=== PATIENT | female | born 1955 | race Caucasian/White ===

== ENCOUNTER 2024-09-11 05:41 | Inpatient (IN) | payer MEDICARE, BC, SELFPAY ==
[2024-09-11] VITALS (21 sets, daily range): BP systolic 120–185; BP diastolic 10–111; PULSE 54–87; RESP 15–18; TEMP 35.8–36.9; O2SAT 94–100; BMI 24.7
--- OUTSIDE RECORDS SUMMARY | 2024-09-11 05:43 | XMS_ITS | Data Portability ---
Author Organization [place] [facility], [facility] - [facility] Address [address] [facility] [address] [facility] [address] [place] [address] Assessment Encounter Date Assessment Date Assessment LastModified by Organization Details LastModified Time 06/04/2024 06/04/2024 ASSESSMENT: Patient is a good candidate for conservative care and the prognosis is for a favorable outcome that achieves the patients' goals. We discussed etiology, activity modifications, home care, and other treatment options. Initially, it is recommended that the patient receive in-office treatment 1 times per week for 8 weeks at which time a re-evaluation will be performed to determine an appropriate change in plan. Initially, treatment will focus on joint manipulation to restore range of motion and reduce pain. We will slowly progress to therapeutic exercises and activities to improve function, strength, and stability may also be used as warranted. If the patient is not responding as expected, more invasive procedures will be discussed along with a referral. All considerations above were discussed with the patient and questions answered to satisfaction. If the patient should have any additional questions, or should the condition evolve or worsen, the patient should not hesitate to contact our office. ecram Not available 06/04/2024 15:33:47 08/20/2024 08/20/2024 ASSESSMENT: Patient is a good candidate for conservative care and the prognosis is for a favorable outcome that achieves the patients' goals. We discussed etiology, activity modifications, home care, and other treatment options. Initially, it is recommended that the patient receive in-office treatment 1 times per week for 8 weeks at which time a re-evaluation will be performed to determine an appropriate change in plan. Initially, treatment will focus on joint manipulation to restore range of motion and reduce pain. We will slowly progress to therapeutic exercises and activities to improve function, strength, and stability may also be used as warranted. If the patient is not responding as expected, more invasive procedures will be discussed along with a referral. All considerations above were discussed with the patient and questions answered to satisfaction. If the patient should have any additional questions, or should the condition evolve or worsen, the patient should not hesitate to contact our office. ecram Not available 08/20/2024 12:40:11 Plan of Treatment Reminders Order Date Submit Date Provider Last Modified By Organization Details Last Modified Time Details Appointments None record ed. Lab None record ed. Referral None record ed. Procedures None record ed. Surgeries None record ed. Imaging None record ed. Medication Orders None record ed. Patient TargetsNo targets recorded. Patient InstructionsNo instructions recorded. Reason for Referral None Reported. Problems Name Problem SNOMED Code Status Onset Date Resolution Date Notes Provider Name and Address Organization Details Recorded Time Thoracic segmental dysfunction 672784733 Active 2024 Darshan Jernigan DC [address] [facility], [place], [address], [facility] 15:33:48 Low back pain 060261306 Active 2024 Darshan Jernigan DC [address] [facility], [place], [address], [facility] 15:33:48 Lumbar segmental dysfunction 841792666 Active 2024 Darshan Jernigan DC [address] [facility], [place], [address], [facility] 15:33:48 Somatic dysfunction of sacral spine 971249329 Active 2024 Darshan Jernigan DC [address] [place] [address], [place], [address], [facility] 15:33:48 Problem Notes None recorded. Procedures Surgical History Date Name Laterality Status Provider Name and Address Organization Details Recorded Time 5 02258: Spinal manipulation , 3 to 4 regions completed Darshan Jernigan DC [address] [facility], [place], [address], [facility] 08/20/2024 12:40:11 5 47923: Spinal manipulation , 3 to 4 regions completed Darshan Jernigan DC [address] [facility], [place], [address], [facility] 06/04/2024 15:34:28 Imaging Results None recorded. Procedure Notes None recorded. Medical Equipment None Reported. Medications Name Sig Start Date Stop Date Status Note LastModified by Organization Details LastModified Time losartan 50 mg tablet TAKE 1.5 TABLETS (75 MG) BY MOUTH ONCE DAILY. active Not Available Not Available No t Available trazodone 50 mg tablet TAKE ONE TABLET BY MOUTH BEFORE BED FOR INSOMNIA active Not Available Not Available No t Available losartan 25 mg tablet TAKE 1 TABLET (25 MG) BY MOUTH ONCE DAILY. active Not Available Not Available No t Available metoprolol succinate ER 25 mg tablet,extend ed release 24 hr TAKE 1 TABLET (25 MG) BY MOUTH ONCE DAILY. active Not Available Not Available No t Available escitalopram 5 mg tablet TAKE 1 TABLET (5 MG) BY MOUTH ONCE DAILY IN THE MORNING. active Not Available Not Available No t Available GaviLyte-G 236 gram-22.74 gram-6.74 gram-5.86 gram oral solution DRINK 2 LITERS THE DAY BEFORE THE PROCEDURE AND 2 LITERS 6 HOURS PRIOR TO PROCEDURE. DO NOT START BEFORE MARCH 05, 2024. active Not Available Not Available No t Available Vitals None Recorded Social History None recorded. Functional Status None recorded. Mental Status None recorded. Family History Nothing Reported. Medical History No medical history recorded. Gynecological HistoryNo gynecological history recorded. Obstetrics History GPAL:G 0 P 0 0 0 0 Past Encounters Encounter ID Performer Location Encounter Start Date Encounter Closed Date Diagnosis/Indication Diagnosis SNOMED-CT Code Diagnosis ICD10 Code Diagnosis Note [id number] Darshan Jernigan DC [facility] [address] [place] [address] 06/04/2024 15:23:25 06/04/2024 15:39:18 Lumbar segmental dysfunction 350742876 M99.03 Low back pain 125524488 M54.50 Somatic dy sfunction of sacral spine 201938721 M99.04 Thoracic s egmental dysfunction 822434879 M99.02 [id number] Darshan Jernigan DC [facility] [address] [facility] [place] [address] 08/20/2024 12:22:44 08/20/2024 12:42:47 Lumbar segmental dysfunction 112020055 M99.03 Low back pain 098001289 M54.50 Somatic dy sfunction of sacral spine 987995429 M99.04 Thoracic s egmental dysfunction 625177893 M99.02 Health Concerns Section Related Observation LastModified by Organization Detai ls LastModified Time None Recorded Concern Status LastModified by Organization Details LastModified Time None Recorded Advance Directives Directive None Recorded Payers Encounter Date Sequence Insurance Name Policy Number Policy Fuentes Covered Member ID Fuentes Member ID Guarantor Name 06/04/2024 1 [place] [id number] Lakisha Hurtado [id number] Nona Hurtado 06/04/2024 2 [place] [email or web address] [place] [facility] Lakisha Hurtado [id number] Nona Hurtado 08/20/2024 1 [place]) [id number] Lakisha Hurtado [id number] Nona Hurtado Notes Date Note Type Note Provider Name and Address Organization Details Recorded Time 06/04/2024 text/html HPI - Lumbar SpineReported bypatient.Location: bilateral; With radiation to knee Quality:aching Severity:mild Timing:gradual Context:lifting; twisting Aggravating Factors:carrying; twisting; bending/squatting Alleviating Factors:rest Darshan Jernigan DC [address] [facility], [place], [address], [facility] 06/04/2024 15:34:43 08/20/2024 text/html HPI - Lumbar SpineReported bypatient.Location: bilateral; With radiation to knee Quality:aching Severity:mild Timing:gradual Context:lifting; twisting Aggravating Factors:carrying; twisting; bending/squatting Alleviating Factors:rest Darshan Jernigan DC [address] [facility], [place], [address], [facility] 08/20/2024 12:40:59 OBGyn Episode No OBEpisode recorded.
--- OUTSIDE RECORDS SUMMARY | 2024-09-11 05:43 | XMS_ITS | Continuity of Care Document ---
Author Organization [place] - [facility] Address [address] [facility] [address] [address] [place] [address] Assessment Encounter Date Assessment Date Assessment LastModified by Organization Details LastModified Time 08/20/2024 08/20/2024 ASSESSMENT: Patient is a good [...] Organization Details Recorded Time Thoracic segmental dysfunction 398569663 Active 2024 Darshan Jernigan DC [address] [facility], [place], [address], [facility] 5 15:33:48 Low back pain 775348286 Active 2024 Darshan Jernigan DC [address] [facility], [place], [address], [facility] 5 15:33:48 Lumbar segmental dysfunction 488705893 Active 2024 Darshan Jernigan DC [address] [facility], [place], [address], [facility] 5 15:33:48 Somatic dysfunction of sacral spine 874394607 Active 2024 Darshan Jernigan DC [address] [facility], [place], [address], [facility] 5 15:33:48 Problem Notes None recorded. Procedures Surgical History Date Name Laterality Status Provider Name and Address Organization Details Recorded Time 5 08175: Spinal manipulation , 3 to 4 regions completed Darshan Jernigan DC [address] [facility], [place], [address], [facility] 08/20/2024 12:40:11 5 36635: Spinal manipulation , 3 to 4 regions completed Darshan Jernigan DC [address] [facility], [place], [address], [facility] 06/04/2024 15:34:28 Imaging Results None recorded. Procedure [...] SNOMED-CT Code Diagnosis ICD10 Code Diagnosis Note [id number] [facility] [address] [place] [address] [place] [address] 08/20/2024 12:22:44 08/20/2024 12:42:47 Lumbar segmental dysfunction 649218237 M99.03 Low back pain 557851269 M54.50 Somatic dy sfunction of sacral spine 161902819 M99.04 Thoracic s egmental dysfunction 865448255 M99.02 Health Concerns Section Related Observation LastModified by Organization Detai ls LastModified Time None Recorded Concern Status LastModified by Organization Details LastModified Time None Recorded Payers Encounter Date Sequence Insurance Name Policy Number Policy Fuentes Covered Member ID Fuentes Member ID Guarantor Name 08/20/2024 1 [place] [id number] Lakisha Hurtado [id number] Nona Hurtado Notes Date Note Type Note Provider Name and Address Organization Details Recorded Time 08/20/2024 text/html HPI - Lumbar SpineReported bypatient.Location: bilateral; With radiation to knee Quality:aching Severity:mild Timing:gradual Context:lifting; twisting Aggravating Factors:carrying; twisting; bending/squatting Alleviating Factors:rest Darshan Jernigan DC [address] [facility], [address], [facility] - [facility] 08/20/2024 12:40:59 OBGyn Episode No OBEpisode recorded.
--- OUTSIDE RECORDS SUMMARY | 2024-09-11 05:43 | XMS_ITS | Clinical Summary ---
Author Organization [employer] [facility] [employer] [facility] Address [address] [place] [id number] Care Team Providers Care Breaker Machine Operator Name Role Phone Tess Murphy DO Primary Care Provider [phone] Allergies No known active allergies Medications multivitamin (MVI) tablet Take 1 tablet by mouth once daily. 0 6 Active calcium carbonate-vitam in D3, 600 mg-125 unit, (CALCIUM 600 + D) tablet Take 1 tablet by mouth 2 times daily with meals. 0 6 Active melatonin 3 mg tablet Take 1 tablet by mouth at bedtime. unsure of dose 0 7 Active Omeprazole 20 mg tabletIndicatio ns:Gastric reflux Take 1 tablet by mouth once daily. 90 tablet 3 0 Active escitalopram oxalate (LEXAPRO) 5 mg tabletIndicatio ns:Anxiety Take 1 Tablet (5 mg) by mouth once daily in the morning. 90 Tablet 3 4 Active miscellaneous medical supply (Blood Pressure Cuff) miscIndications :HTN (hypertension) As directed. Home automatic BP cuff 1 Each 4 Active metoprolol succinate (Toprol XL) 25 mg Sustained-Relea se tabletIndicatio ns:HTN (hypertension) Take 1 Tablet (25 mg) by mouth once daily. 90 Tablet 4 4 Active losartan 50 mg tabletIndicatio ns:HTN (hypertension) Take 1.5 Tablets (75 mg) by mouth once daily. 135 Tablet 3 5 Active polyethylene glycol-electrol yte (GOLYTELY) 236-22.74-6.74 -5.86 gram suspensionIndic ations:Encounte r for screening colonoscopy Drink 2 liters the day before the procedure and 2 liters 6 hours prior to procedure. Do not start before March 05, 2024. 4000 mL 4 09/03/19 25 Discontinu ed(*Med complete/R egimen complete/L evel of care change) losartan 50 mg tabletIndicatio ns:HTN (hypertension) Take 1.5 Tablets (75 mg) by mouth once daily. 135 Tablet 5 09/03/19 25 Discontinu ed(Reorder (E-cancel not sent)) Active Problems Problem Noted Date Diagnosed Date Aortic valve regurgitation 03/24/2024 Overview (03/24/2024): Echocardiogram 03/16/24, mild to moderate Ascending aorta dilatation 03/24/2024 Overview (03/24/2024): Echocardiogram 03/16/24 ascending aorta 4.5cm, aortic sinus 4.1cm. Osteopenia 07/05/2014 Overview (07/05/2014): -1.5- -1.6 in hips.. Recommend exercise and recheck 4-5 years. Ramandeep Yen M.D. 07/05/2014 5:30 PM Stress fracture of fibula 06/21/2014 Benign neoplasm of colon 08/29/2008 Overview (06/27/2024): Colonoscopy 08/2008 polyp repeat in 5 years Colonoscopy 10/2013 polyp repeat in 5 years Colonoscopy 06/2024 1 cm-TA, repeat in 3 years Menopause syndrome 07/29/2008 Overview (08/25/2009): Much improved Insomnia, unspecified 07/10/2007 Resolved Problems Problem Noted Date Diagnosed Date Resolved Date senior living (current) use of anticoagulants 03/13/2012 04/10/2012 Closed fracture of metatarsal bone(s) 08/03/2011 09/17/2013 Articular cartilage disorder, right knee 05/24/2011 09/11/2012 Right ankle pain 05/24/2011 09/17/2013 Hip bursitis 05/24/2011 09/17/2013 Elevated BP 06/11/2010 08/31/2010 Encounters Date Type Department Care Team Description 09/04/2024 Orders Only [facility] [address] [place] [address] Tess Murphy DO <No scans attached> 09/02/2024 10:25 AM CDT Office [facility] [address] [facility] [address] Tess Murphy DO Blood Pressure; Knee Pain/problem (Bump on left knee 1 month) 09/02/2024 Travel 08/10/2024 12:15 PM CDT Office Visit [facility] [address] [facility] [address] [place] [address] Olesya Posada MD Derm Problem 08/10/2024 Travel 06/23/2024 6:49 AM NEWSPAPER DELIVERY DRIVER - 06/23/2024 11:59 PM NEWSPAPER DELIVERY DRIVER Hospital Encounter Al Leal MD 06/23/2024 Lab Requisition [facility] [phone] Al Leal MD 06/23/2024 Orders Only [facility] [address] [facility] [place] [address] Al Leal MD 1 scan: (1-Ord) [facility] 06/23/2024 Orders Only [facility] [address] [facility] [address] [place] [address] Al Leal MD <No scans attached> 06/23/2024 Surgery [facility] [address] [facility] [address] [place] [address] Al Leal MD Colonoscopy 06/21/2024 11:00 AM NEWSPAPER DELIVERY DRIVER Orders Only [facility] [address] [place] [address] Lab 06/21/2024 Travel 06/15/2024 Telephone [facility] [address] [place] [address] Al Leal MD [facility] [place] [facility]/23/24) from Last 3 Months Immunizations Immunization Administration Dates Next Due AMB Influenza, IIV4 PF (=>6 mos Flulaval,Fluzone Fluarix)(Flu Clinic Only) 03/13/2020 COVID-19 VACCINE SPIKEVAX (M ODERNA 50MCG/0.5ML) 12YO+ PFS 03/26/2023 DTaP 07/29/2008 Influenza, IIV3 (Age >=3 years) 03/21/2010 Influenza, Inactivated AIIV4 (Age 65+ Years) Preserv Free 03/26/2023 Pneumococcal Conj 20-valent (Prevnar 20) 023 Td (Age >=7 Years) 01/05/1999 Tdap 02/27/2024,09/17/2013 Zoster (Shingrix-RZV, recombinant) 04/04/2020, Zoster (Zostavax-ZVL, live) 05/24/2013 Family History Medical History Relation Name Comments Other Brother at 17 from MVA Heart Disease Father Heart Disease Mother Cancer-breast No Family History Cancer-colon No Family History not in par ent or sibling Diabetes No Family History Relation Name Status Comments Brother Father (Age 72) of [place] Mother (Age 74) dementia, of chf Social History Tobacco Use Types Packs/Day Years Used Date Smoking Tobacco: Former Cigarettes 0.3 30 0 01/17/1979 - 01/17/2009 Smokeless Tobacco: Never Tobacco Cessation:Counseling Given: Not Answered Comments:quit 2008 Alcohol Use Standard Drinks/Week Comments Yes 3 (1 standard drink = 0.6 oz pur e alcohol) PHQ-2 Answer Date Recorded PHQ-2 TOTAL SCORE 0 04/29/2024 Social Connections Answer Date Recorded Do you often feel lonely or isolated from those around you? 0 02/24/2024 Alcohol Use Answer Date Recorded How often do you have a drink containing alcohol ? 3 02/13/2023 How many drinks containing a lcohol do you have on a typical day when you are drinking? 0 02/13/2023 How often do you have five or more drinks on one occasion? 0 02/13/2023 Financial Resource Strain Answer Date R ecorded Difficulty of Paying Living Expenses 3 02/24/2024 Difficulty of Paying Living Expenses Not on file 02/24/2024 Food Insecurity Answer Date Recorded Do you worry your food will run out before you are able to buy more? 1 02/24/2024 Transportation Needs Answer Date Record ed Does lack of transportation keep you from medica l appointments? 1 02/24/2024 Does lack of transportation keep you from work, meetings or getting things that you need? 1 02/24/2024 Housing Stability Answer Date Recorded What is your housing situation today? 1 02/24/2024 Utilities Answer Date Recorded Do you have trouble paying f or utilities (for example, heat, electricity, water, phone)? 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 Not on file Not on file Not on file Obstetrics History Para Term AB IAB SAB Ectopic Multiple Livin g Live Births 3 3 3 0 0 0 0 0 0 3 3 Date Outcome GA Total Labor Labor/2nd/3rd Weight Sex Type Anes PTL Darya A1 A5 Name Clin Term Vag Living Term Vag Living Term Vag Living Last Filed Vital Signs Vital Sign Reading Time Taken Comments Blood Pressure 118/78 09/02/2024 10:47 AM CDT Pulse 76 09/02/2024 10:27 AM CDT Temperature 36.9 C (98.4 F) 06/01/2024 11:15 AM NEWSPAPER DELIVERY DRIVER Respiratory Rate - - Oxygen Saturation 100% 09/02/2024 10:27 AM CDT Inhaled Oxygen Concentration - - Weight 70.3 kg (155 lb) 09/02/2024 10:27 AM CDT Height 165.1 cm (5' 5) 06/01/2024 11:15 AM NEWSPAPER DELIVERY DRIVER Body Mass Index 25.79 06/01/2024 11:15 AM NEWSPAPER DELIVERY DRIVER Plan of Treatment Upcoming Encounters Date Type Department Care Team (Late st Contact Info) Description 10/14/2024 11:45 AM CDT Orders Only [facility] [address] [place] [address] Lab, [facility] Maintenance Due Date Last Done Comments RSV vaccine for adults or (1 - Risk 60-74 years 1-dose series) 2017 COVID-19 vaccine series ( season) 2024 03/26/2023, 04/12/2022, 03/20/2021, Additional history exists Mammogram for age 45-75 11/17/2024 11/18/19, 11/14/2022, 11/12/2021, Additional history exists Influenza Vaccine (Season Ended) 2025 03/26/2023, 03/13/2020, 03/21/2010 Medicare Wellness for age 65+ 02/24/2025 02/24/2024, 02/13/2023 Depression screening for age 12+ 04/30/2025 04/30/2024, 04/29/2024, 02/24/2024, Additional history exists BMI (ht and wt on same day) for age 18+ 06/01/2025 06/01/2024, 04/26/2024, 02/24/2024, Additional history exists Colonoscopy through age 75 06/23/202706/23, 03/11/2019, 03/11/2019, Additional history exists Lipids for age 45-75 02/23/2029 02/24/2024, 02/13/2023, 02/12/2022, Additional history exists Tetanus booster 02/26/2034 02/27/2024, 06/2013, 01/05/1999 Hepatitis C screening for ag e 18-79 Completed 09/17/2013 Zoster (shingles) series for age 50+ Completed 04/04/2020, 02/01/2020, 05/24/2013 Pneumococcal series for age 50+ Completed 3 Tdap Completed 02/27/2024, 09/17/2013 DEXA/DXA scan for age 65+ Completed 2023, 01/12/2020, 06/28/2014 Procedures Procedure Name Priority Date/Time Associated Diagnosis Comments CREATININE Routine 09/02/2024 10:52 AM CDT HTN (hypertension) POTASSIUM Routine 09/02/2024 10:52 AM CDT HTN (hypertension) PATH TISSUE EXAM Routine 08/10/2024 1:33 PM CDT Neoplasm of uncertain behavior PATH TISSUE EXAM Routine 06/23/2024 8:17 AM NEWSPAPER DELIVERY DRIVER LAB TRACKING EVENT Routine 06/23/2024 8: 15 AM NEWSPAPER DELIVERY DRIVER COLONOSCOPY SCREENING Routine 06/23/2024 12:00 AM NEWSPAPER DELIVERY DRIVER Benign neoplasm of colon, unspecified part of colon HEPATIC FUNCTION PANEL Routine 06/21/2024 10:52 AM NEWSPAPER DELIVERY DRIVER Elevated AST (SGOT) CREATININE Routine 06/21/2024 10:52 AM NEWSPAPER DELIVERY DRIVER HTN (hypertension) POTASSIUM Routine 06/21/2024 10:52 AM NEWSPAPER DELIVERY DRIVER Pre-op exam XR DXA BONE DENSITY 2 SITES AXIAL Routine 03/02/2024 1:20 PM CDT Menopause Osteopenia, unspecified location LIPID PANEL W REFLEX MEASURED LDL Routine 02/24/2024 10:23 AM CDT Lipid screening XR MAMMO USHA BILAT SCREEN Routine 11/18/2023 9:16 AM CDT Visit for screening mammogram ANTI HCV Routine 09/17/2013 9:41 AM CDT Need for hepatitis C screening test SURGICAL PROCEDURE (TYPE PROCEDURE DESCRIPTION BELOW) Encounter for screening colonoscopy from Last 3 Months or Most Recently Relevant to Health Maintenance Results * POTASSIUM (09/02/2024 10:52 AM CDT) Only the most recent of2 resultswithin the time period is included. POTASSIUM 3.9 3.5 - 5.3 mmol/L [facility] Blood BLOOD SPECIMEN / Unknown 09/02/2024 10:52 AM CDT 09/02/2024 10:54 AM CDT Narrative [facility] - 09/03/2024 5:59 AM CDT FASTING:YES FASTING: YES [facility] [employer] CHEMISTRY Final Resu lt Performing Organization Address [facility]/ZIP Co de Phone Number [facility] [address] [place] [address], [facility] [address] [place] [address] * (ABNORMAL) CREATININE (09/02/2024 10:52 AM CDT) Only the most recent of2 resultswithin the time period is included. CREATININE 1.06(H) 0.50 - 1.05 mg/dL [facility] EGFR 58(L) > OR = 60 mL/min/1.73 m2 [facility] Blood BLOOD SPECIMEN / Unknown 09/02/2024 10:52 AM CDT 09/02/2024 10:54 AM CDT Narrative [facility] - 09/03/2024 5:59 AM CDT FASTING:YES FASTING: YES [facility] [email or web address] CHEMISTRY Final Resu Performing Organization Address City/[facility] Co de Phone Number [facility] [facility] [address] [place] [phone], [facility] [address] [place] [phone] * PATH TISSUE EXAM (08/10/2024 1:33 PM CDT) Only the most recent of2 resultswithin the time period is included. Case Report Pathology Report Case: [id number] Authorizing Provider: Olesya Posada MD Collected: 08/10/2024 1333 Ordering Location: [facility] Received: 08/10/2024 1334 [facility] Pathologist: Wilder Prado MD Specimen: Skin, right medial cheek 08/16/2024 5:54 PM CDT [facility] Final Diagnosis A) SKIN, RIGHT MEDIAL CHEEK, BIOPSY: 1. Excoriated folliculitis 2. No evidence of malignancy 08/16/2024 5:54 PM CDT [facility] EN[facility]OR[facility] at 1754 CDT Comment A) Multiple deeper levels are evaluated to exclude malignancy. 08/16/2024 5:54 PM CDT [facility] Clinical Information rule out basal cell carcinoma 08/16/2024 5:54 PM CDT [facility] Gross Description A) Received in formalin, labeled with the patient's name and R medial cheek, is a 0.9 x 0.6 cm skin biopsy. There is a 0.3 x 0.1 cm flat clay lesion. The specimen is inked yellow, trisected and entirely submitted in one cassette. [facility] 08/11/2024 08/16/2024 5:54 PM CDT [facility] ENTR[facility]ORATORY Microscopic Description The final diagnosis is based on microscopic examination of appropriate sections of all specimens. A) Sections of skin demonstrate focal excoriation of the epidermis with associated reactive squamous epithelial change and mixed acute and chronic inflammation. This appears to involve a cystically dilated, inflamed follicle. There is associated dermal fibrosis. Deeper level sections are evaluated. The presence of yellow ink is confirmed on tissue sections. 08/16/2024 5:54 PM CDT [facility] Additional Information Interpreted at [facility] - [address] [facility] [address] [address] 08/16/2024 5:54 PM CDT [facility] Other SPECIMEN FROM SKIN / Unknown Non-Blood / Unknown 08/10/2024 1:33 PM CDT 08/10/2024 1:34 PM CDT us Olesya Posada MD PATHOLOGY/CYTOLOGY Final Result [facility] [address] [place] [address], * LAB TRACKING EVENT (06/23/2024 8:15 AM NEWSPAPER DELIVERY DRIVER) Other (Other) Client Collect / Unknown 06/23/2024 8:15 AM NEWSPAPER DELIVERY DRIVER 06/23/2024 5:17 PM NEWSPAPER DELIVERY DRIVER Al Leal MD LAB BILL ONLY Final Res ult [facility] [address] [place] [address], * COLONOSCOPY SCREENING (06/23/2024 12:00 AM NEWSPAPER DELIVERY DRIVER) Al Leal MD GI PROCEDURE ORD Final Re sult * LIVER PANEL (HEPATIC FUNCTION PANEL) (06/21/2024 10:52 AM NEWSPAPER DELIVERY DRIVER) PROTEIN, TOTAL 7.3 6.1 - 8.1 g/dL [facility] ALBUMIN 4.4 3.6 - 5.1 g/dL [facility] GLOBULIN 2.9 1.9 - 3.7 g/dL (calc) [facility] ALBUMIN/GLOBULIN RATIO 1.5 1.0 - 2.5 (calc) [facility] BILIRUBIN, TOTAL 0.9 0.2 - 1.2 mg/dL [facility] BILIRUBIN, DIRECT 0.2 < OR = 0.2 mg/dL [facility] BILIRUBIN, INDIRECT 0.7 0.2 - 1.2 mg/dL (calc) [facility] ALKALINE PHOSPHATASE 39 37 - 153 U/L [facility] AST 28 10 - 35 U/L [facility] ALT 14 6 - 29 U/L [facility] Blood BLOOD SPECIMEN / Unknown 06/21/2024 10:52 AM NEWSPAPER DELIVERY DRIVER 06/21/2024 10:53 AM NEWSPAPER DELIVERY DRIVER Narrative [facility] - 06/22/2024 5:51 AM NEWSPAPER DELIVERY DRIVER FASTING:NO FASTING: NO Tess Murphy DO CHEMISTRY Final Resu lt [facility] [address] [place] [address], [facility] [address] [place] [address] * (ABNORMAL) XR DXA BONE DENSITY 2 SITES AXIAL (03/02/2024 1:20 PM CDT) Anatomical Region Laterality Modality Spine, HIPS, HIPL, HIPR Other Impressions 03/10/2024 4:14 PM CDT Osteopenia. RECOMMENDATIONS: The National Osteoporosis Foundation recommends pharmacologic treatment for patients with T-scores of -2.5 or less, patients with prior history of fragility fractures, or patients with 10-year probability of greater than 3% at hips or greater than 20% of suffering major osteoporotic fractures. Recommend continued optimization of calcium and vitamin D intake through dietary means and/or supplementation and regular exercise. Repeat scan recommended in 3-5 years. Oma Hernandez PA-C [facility] 03/10/2024 Narrative 03/10/2024 4:14 PM CDT For Patients: Results are automatically released to your [facility] [employer] [facility] ([email or web address]) account once available, in compliance with federal regulations. This means that you may see your results before your provider has had a chance to review them. Please allow 2-3 business days for your provider to comment on the results. XR DXA Bone Mineral Density (BMD) EXAM LOCATION: [address] [address] PATIENT NAME: Lakisha Hurtado DATE OF : 1955 EXAM DATE: 03/02/2024 REQUESTING PROVIDER: Tess Murphy DO GENDER AT : female HEIGHT: 5' 4.75 (02/24/2024) WEIGHT: 161 lb (02/24/2024) MENOPAUSAL STATUS: Postmenopausal RACE/ETHNICITY: White RISK FACTORS: Alcohol > 3 drinks/day (prior), Height Loss (2 inches or more), History of Fragility Fracture (at a major site), Smoking (prior), and White Race CURRENT MEDICATION FOR BONE LOSS: NONE INDICATION: Menopause COMPARISON DATE(S): 2019 DXA scans are compared to prior studies for a patient only when the two (or more) studies were performed on the same scanner. It is not possible to compare data generated on one scanner to data from another because there are not standards in DXA equipment. This applies even if the two scanners are made by the same rn circulating. PROCEDURE: Dual-energy x-ray absorptiometry performed with routine technique. Reporting is completed in the form of a T-score. The T-score represents the standard deviation from peak bone mass based on young healthy adult. A Z-score is used for diagnosis in premenopausal women, and for men under the age of 50. FINDINGS: RESULT LUMBAR SPINE L1 - L4 BMD: 1.090 g/cm2 T-Score: - 0.8 Z-Score: + 0.5 Change from prior in 2020: Increase 4.8%. RESULTS FEMUR Left femoral neck BMD: 0.872 g/cm2 T-Score: - 1.2 Z-Score: + 0.2 Change from prior in 2020: Increase 0.8%. Right femoral neck BMD: 0.875 g/cm2 T-Score: - 1.2 Z-Score: + 0.2 Change from prior in 2020: Decrease 1.2%. Left hip BMD: 0.767 g/cm2 T-Score: - 1.9 Z-Score: - 0.8 Change from prior in 2020: Decrease 2.3%. Right hip BMD: 0.791 g/cm2 T-Score: - 1.7 Z-Score: - 0.6 Change from prior in 2020: Increase 1.7%. WHO criteria: Normal: T-score at or above -1 SD Osteopenia: T-score between -1.1 and -2.4 SD Osteoporosis: T-score at or below -2.5 SD FRAX RISK CALCULATION (USED FOR OSTEOPENIA ONLY): 10-year probability of major osteoporotic fracture: 16.8%. 10-year probability of hip fracture: 2.0%. us Tess Murphy DO DEXA Final Resu lt * (ABNORMAL) LIPID PANEL W REFLEX MEASURED LDL (02/24/2024 10:23 AM CDT) [facility] CHOLESTEROL, TOTAL 298(H) <200 mg/dL [facility] HDL CHOLESTEROL 126 > OR = 50 mg/dL [facility] TRIGLYCERIDES 78 <150 mg/dL [facility] LDL-CHOLESTEROL 154(H) mg/dL (calc) [facility] Comment: Reference range: <100 Desirable range <100 mg/dL for primary prevention; <70 mg/dL for patients with CHD or diabetic patients with > or = 2 CHD risk factors. LDL-C is now calculated using the Arturo calculation, which is a validated novel method providing better accuracy than the Friedewald equation in the estimation of LDL-C. Al GA et al. INGA. 2013;310(19): 8610-7059 (http://education.[employer]/faq/PJW092) CHOL/HDLC RATIO 2.4 <5.0 (calc) [facility] NON HDL CHOLESTEROL 172(H) <130 mg/dL (calc) [facility] Comment: For patients with diabetes plus 1 major ASCVD risk factor, treating to a non-HDL-C goal of <100 mg/dL (LDL-C of <70 mg/dL) is considered a therapeutic option. Blood BLOOD SPECIMEN / Unknown 02/24/2024 10:23 AM CDT 02/24/2024 10:24 AM CDT us Tess Murphy DO CHEMISTRY Final Resu lt [facility] [address] [place] [address], [facility] [address] [place] [address] * XR MAMMO USHA BILAT SCREEN (11/18/2023 9:16 AM CDT) Anatomical Region Laterality Modality BREASTS, Breast Left, Breast Right Bilateral Mammography Impressions 11/18/2023 4:26 PM CDT There is no radiographic evidence for malignancy. Recommend annual mammograms. MAMMOGRAM ASSESSMENT: ACR 1 Negative PATIENTS: You will also receive a letter with your examination results in an easy to read format. If you have questions about your results, please contact your referring provider. Narrative 11/18/2023 4:26 PM CDT For Patients: As a result of the 21st Century Cures Act, medical imaging exams and procedure reports are released immediately into your electronic medical record. You may view this report before your referring provider. If you have questions, please contact your health care provider. XR MAMMO USHA BILAT SCREEN [[id number]] CLINICAL HISTORY: This is an asymptomatic 68 y.o. patient. INDICATION FOR EXAM: Mammogram Screening. TECHNIQUE: CC & MLO views were obtained. This study was evaluated with the assistance of Computer-Aided Detection. Breast Tomosynthesis was used in interpretation. COMPARISON FILM: Yes 11/14/22 [facility] 11/12/21 [facility] FINDINGS: There are scattered areas of fibroglandular density. There are no dominant masses, suspicious micro calcifications or areas of architectural distortion. Tess Murphy DO MAMMO Final Resu lt * ANTI HCV [[id number]] (09/17/2013 9:41 AM CDT) HEPATITIS C ANTIBODY Non-Reacti ve Non-Reacti ve 09/17/2013 4:04 PM CDT [facility] Blood specimen (specimen) BLOOD SPECIMEN / Unknown Venipuncture / Unknown 09/17/2013 9:41 AM CDT 09/17/2013 9:41 AM CDT Narrative [facility] - 09/17/2013 4:04 PM CDT Antibodies to HCV not detected; does not exclude the possibility of exposure to HCV. Ramandeep Yen SEND OUTS Final R esult [facility] [address] [place] [address], [place] from Last 3 Months or Most Recently Relevant to Health Maintenance Insurance [employer] [place] [place] [address] [employer] [address] MEDICARE PART B HB ONLY Care Teams Breaker Machine Operator Relationship Specialty Start Date End Date Tess Murphy DO [address] [place] [address] PCP - General Family Practice 08/22/15
--- NOTE | 2024-09-11 06:13 | CRLHL7_ITS ---
For Patients: As a result of the Century Cures Act, medical imaging exams and procedure reports are released immediately into your electronic medical record. You may view this report before your referring provider. If you have questions, please contact your health care provider. INDICATION: Abdominal pain COMPARISON: None TECHNIQUE: CT examination of the abdomen and pelvis was performed following the uneventful intravenous administration of 75 cc of Isovue 370. Thin section axial images were obtained from the lung bases through the pubic symphysis. Oral contrast was not administered. Please note that all CT scans at this facility use dose modulation, iterative reconstruction, and/or weight-based dosing when appropriate to reduce radiation dose to as low as reasonably achievable. FINDINGS: LUNG BASES: Basilar opacities probably due to atelectasis or scarring.Heart size top normal the lung bases. Large hiatal hernia admitting the fundus and a portion of the corpus of the stomach. LIVER/BILIARY SYSTEM:Steatosis. Low-density lesion likely a cyst. No biliary ductal dilation. Normal-appearing gallbladder. ADRENALS: Normal KIDNEYS, URETERS and BLADDER:The kidneys appear normal. No visible mass, calculus or hydronephrosis. The ureters and bladder as visualized appear normal. SPLEEN:Normal appearance. PANCREAS: Appears normal. RETROPERITONEUM and MESENTERY: No mass or adenopathy. Abnormal mesenteric vasculature as described below GASTROINTESTINAL SYSTEM: Significantly dilated abnormal appearing midabdominal small bowel with engorgement of the mesentery and twisting morphology identified best seen when scrolling through coronal images number 40 through 66. This probably represents a close loop obstruction associated with a volvulus or internal hernia. Some of the small bowel loops show poor perfusion suggesting ischemia. Surgical consultation is advised. No definite intramural air or free air. Mild free fluid. PELVIS: No mass, adenopathy or free fluid. OSSEOUS STRUCTURES and ABDOMINAL WALL: There is an age-appropriate appearance of the osseous structures.No significant abdominal wall defect. Discussed with Dr. Tan at 7:30 a.m. on September 11, 2024 IMPRESSION: 1. Abnormal midabdominal small bowel. This appears represent a closed loop obstruction possibly due to volvulus or internal hernia. Clearly visible twisting morphology of the vascular pedicle at the mesentery. Poorly enhancing small bowel loops suggesting ischemia. No intramural air, free air or collection. Mild free fluid. Surgical consultation advised. 2. Other nonacute appearing findings as above. Please note that all CT scans at this facility use dose modulation, iterative reconstruction, and/or weight-based dosing when appropriate to reduce radiation dose to as low as reasonably achievable. Dictated by Dustin Fitzgerald MD @ 09/11/2024 7:32:25 AM (Electronically Signed)
--- NOTE | 2024-09-11 06:17 | ED_ITS ---
HPI - General Adult General Chief complaint: Abdominal Pain Stated complaint: Abdominal pain Time Seen by Provider: 09/11/24 06:06 Source: patient Mode of arrival: ambulatory Limitations: no limitations History of Present Illness HPI narrative: 69-year-old female presents to the emergency department for evaluation of abdominal pain since 1:00 a.m., 5 hours ago. No trauma or injury. Pain is diffuse, nonlocalizing. Last bowel movement was about an hour prior to presentation, normal. No bloody stools or diarrhea. No vomiting. Does feel a little nauseated. No prior history of similar symptoms. No prior abdominal surgeries. Did not try taking any medication to help with her symptoms. Appetite has been normal, no sick contacts, no pertinent travel. Pain is constant and achy. Rating as severe. No radiation. Reports a history of hypertension, no other long-term health problems. Home med seems to be losartan, denies others. Reports that she had a normal colonoscopy 2 months ago. Nonsmoker. ROS is notable for the abdominal symptoms only, otherwise denies times 12 systems. Related Data Allergies Allergy/AdvReac Type Severity Reaction Status Date / Time No Known Drug Allergies Allergy Verified 09/11/24 07:10 [facility] Social History Smoking Status: Never smoker Non-prescribed substance use: denies use Exam Const: Vital Signs, click to edit/add: Vital Signs - 24 hr 09/11/24 05:47 09/11/24 06:52 Temperature 97.0 F L Pulse Rate 54 L Pulse Rate [Left P ulse Oximeter] 73 Respiratory Rate 18 Blood Pressure 185/101 H Blood Pressure [Ri ght Upper Arm] 178/10 H Pulse Oximetry 100 96 Oxygen Delivery Me thod Room Air Documenting provider has reviewed patient's vital signs: yes Common normals: alert General appearance: well kempt Other: Restless, fidgeting, does seem to be in acute pain but cooperates with exam. Appears well-nourished and well-hydrated, slightly pale. HENMT: Common normals: normocephalic, moist oral mucous membranes and oropharynx normal Head and scalp: normocephalic Eye: Common normals: conjunctivae normal General eye: normal appearance of both eyes Conjunctiva: conjunctiva(e) normal Neck & C-Spine: Common normals: full ROM General: normal visual inspection Resp: Common normals: normal respiratory effort, no use of accessory muscles and clear to auscultation bilaterally Effort & inspection: able to speak in complete sentences Auscultation: clear to auscultation bilaterally Cardio: Common normals: regular rate, regular rhythm, S1 normal heart sound, S2 normal heart sound and no murmurs Rate: regular rate Rhythm: regular rhythm Heart sounds: S1 normal and S2 normal GI: Other: Abdomen appears slightly distended. Bowel sounds sound hypoactive throughout. Diffusely tender to palpation but no rebound tenderness or guarding. No mass, no hepatosplenomegaly, but suboptimal and difficult exam due to patient discomfort. Back & Pelvis: Common normals: thoracic and lumbar spine normal to inspection Extremity: Common normals: normal to inspection, normal capillary refill and no pedal edema Neuro: Common normals: moves all extremities Sensorium/orientation: alert Motor exam: no tremor noted and no movement abnormalities noted Psych: Appearance: well kempt Attitude: engaged Attention/concentration: attention grossly intact Memory/cognition: memory grossly intact Insight: insight good Judgement: judgment good Skin: Common normals: no rashes or lesions noted General skin exam: no rashes or lesions noted Course Course ED Course: 69-year-old female with diffuse abdominal pain, nontraumatic. Pain does seem very severe. Differential diagnosis including pancreatitis, bowel obstruction, colitis, ischemic bowel, constipation, volvulus, gastroenteritis, cholecystitis, appendicitis, a gynecological issue, aortic emergency. Will give Dilaudid have mg IV, 4 of Zofran, CT of the abdomen and pelvis and typical intra-abdominal labs. support director placed. EKG. Reevaluation(s) Time of Reevaluation #1: 07:40 Reevaluation #1: Updated patient on CT findings. Large area of ischemic bowel is very concerning. Needs urgent surgery. Surgeon was called at 7:32 a.m., she is on her way. Will bolus lactated Ringer's. I have confirmed with patient that she has no prior cardiac history, no prior arrhythmia history, no history DVT or PE, she does not have any use of anticoagulants. I have no additional perioperative recommendations and recommend proceeding with surgery urgently. Additional doses of Dilaudid ordered for pain. Vital Signs Vital signs: Initial Vital Signs Temperature 97.0 F L 09/11/24 05:47 Temperature Source Temporal Artery Scan 09/11/24 05:47 Pulse Rate 73 09/11/24 05:47 Pulse Rhythm Regular 09/11/24 05:47 Respiratory Rate 18 09/11/24 05:47 Blood Pressure 178/10 H 09/11/24 05:47 Blood Pressure Mean 66 L 09/11/24 05:47 Blood Pressure Position Sitting 09/11/24 05:47 Pulse Oximetry 100 09/11/24 05:47 Oxygen Delivery Method Room Air 09/11/24 05:47 Vital Signs Temperature 97.0 F L 09/11/24 05:47 Pulse Rate 73 09/11/24 05:47 Respiratory Rate 18 09/11/24 05:47 Blood Pressure 178/10 H 09/11/24 05:47 Pulse Oximetry 100 09/11/24 05:47 Oxygen Delivery Method Room Air 09/11/24 05:47 Temperature 97.0 F L 09/11/24 05:47 Pulse Rate 54 L 09/11/24 06:52 Respiratory Rate 18 09/11/24 05:47 Blood Pressure 185/101 H 09/11/24 06:52 Pulse Oximetry 96 09/11/24 06:52 Oxygen Delivery Method Room Air 09/11/24 05:47 Medications Administered Medications: Generic Name Dose Route Start Last Admin Trade Name Freq PRN Reason Stop Dose Admin Hydromorphone HCl 0.2 - 0.5 mg 09/11/24 06:13 09/11/24 06:59 Hydromorphone 0.5 Mg/0.5 Ml Inj IVP 0.5 mg Q1H PRN Administration Pain Lactated Ringer's 1,000 mls @ 500 mls/hr 09/11/24 07:33 09/11/24 07:45 Lactated Ringers 1000 Ml IV 09/11/24 09:32 500 mls/hr .Q2H REMY Administration Discontinued Medications Generic Name Dose Route Start Last Admin Trade Name Freq PRN Reason Stop Dose Admin Hydromorphone HCl 0.5 mg 09/11/24 06:13 09/11/24 06:39 Hydromorphone 0.5 Mg/0.5 Ml Inj IVP 09/11/24 06:14 0.5 mg ONCE ONE Administration Hydromorphone HCl 0.5 mg 09/11/24 07:37 09/11/24 07:45 Hydromorphone 0.5 Mg/0.5 Ml Inj IVP 09/11/24 07:38 0.5 mg ONCE ONE Administration Ondansetron HCl 4 mg 09/11/24 06:13 09/11/24 06:39 Ondansetron 2 Mg/Ml Inj IVP 09/11/24 06:14 4 mg ONCE ONE Administration Medical Decision Making Lab Data Lab results reviewed: Yes I reviewed the patient's lab results Lab results narrative: Elevated lactate raises prompt suspicion for ischemic bowel, remainder of labs are actually fairly reassuring. Troponin normal. Labs: Lab Results 09/11/24 09/11/24 09/11/24 Range/Units 06:10 06:22 06:47 WBC 10.18 (4.50-11.00) K/uL RBC 3.67 L (4.00-5.20) m/uL Hgb 12.6 (12.0-16.0) gm/dL Hct 36.6 (33.0-51.0) % MCV 100 (80-100) fL MCH 34 (26-34) pg MCHC 34 (32-36) gm/dL RDW Coeff of Calvin 13.1 (11.5-15.5) % Plt Count 219 (140-440) K/uL Neut % (Auto) 75.5 H (42.0-72.0) % Lymph % (Auto) 18.0 L (20-44) % Hughes % (Auto) 5.7 (0.0-11.0) % Eos % (Auto) 0.1 (0.0-7.0) % Baso % (Auto) 0.4 (0.0-3.0) % Neut # (Auto) 7.70 H (1.7-7.0) K/uL Lymph # (Auto) 1.80 (0.90-2.90) K/uL Hughes # (Auto) 0.60 (0.00-0.90) K/UL Eos # (Auto) 0.01 (0.00-0.50) K/uL Baso # (Auto) 0.04 (0.00-0.30) K/uL Abs Immat Gran (auto) 0.03 (0.00-0.30) K/uL Imm/Tot Granulo (auto) 0.3 % Sodium 139 (135-149) mmol/L Potassium 3.4 L (3.6-5.1) mmol/L Chloride 105 (96-114) mmol/L Carbon Dioxide 16 L (20-32) mmol/L Anion Gap 18 H (7-15) mEq/L BUN 17 (7-30) mg/dL Creatinine 1.0 (0.5-1.5) mg/dL Estimated Creat Clear 51.11 Estimated GFR 62 ml/min Glucose 138 H (60-115) mg/dL Lactate 4.2 H* (0.5-1.9) mmol/L Calcium 9.3 (8.4-10.6) mg/dL Total Bilirubin 0.9 (0.1-1.5) mg/dL AST 47 H (12-35) U/L ALT 26 (4-35) U/L Alkaline Phosphatase 64 (40-150) U/L C-Reactive Protein 0.9 (0.5-1.0) mg/dL Total Protein 7.7 (6.0-8.3) g/dL Albumin 4.6 (3.3-5.0) g/dL Lipase 105 (23-300) U/L POC Creatinine 0.9 (0.6-1.3) mg/dl POC Troponin I 0.00 L (0.01-0.04) ng/ml Imaging Data CT scan - abdomen: Attestation: I have reviewed the pertinent imaging results. My impression: Large area of ischemic bowel, likely volvulus. Surgery called at 7:32 a.m. Radiologist's impression: FINDINGS: LUNG BASES: Basilar opacities probably due to atelectasis or scarring.Heart size top normal the lung bases. Large hiatal hernia admitting the fundus and a portion of the corpus of the stomach. LIVER/BILIARY SYSTEM:Steatosis. Low-density lesion likely a cyst. No biliary ductal dilation. Normal-appearing gallbladder. ADRENALS: Normal KIDNEYS, URETERS and BLADDER:The kidneys appear normal. No visible mass, calculus or hydronephrosis. The ureters and bladder as visualized appear normal. SPLEEN:Normal appearance. PANCREAS: Appears normal. RETROPERITONEUM and MESENTERY: No mass or adenopathy. Abnormal mesenteric vasculature as described below GASTROINTESTINAL SYSTEM: Significantly dilated abnormal appearing midabdominal small bowel with engorgement of the mesentery and twisting morphology identified best seen when scrolling through coronal images number 40 through 66. This probably represents a close loop obstruction associated with a volvulus or internal hernia. Some of the small bowel loops show poor perfusion suggesting ischemia. Surgical consultation is advised. No definite intramural air or free air. Mild free fluid. PELVIS: No mass, adenopathy or free fluid. OSSEOUS STRUCTURES and ABDOMINAL WALL: There is an age-appropriate appearance of the osseous structures.No significant abdominal wall defect. Discussed with Dr. Tan at 7:30 a.m. on September 11, 2024 IMPRESSION: 1. Abnormal midabdominal small bowel. This appears represent a closed loop obstruction possibly due to volvulus or internal hernia. Clearly visible twisting morphology of the vascular pedicle at the mesentery. Poorly enhancing small bowel loops suggesting ischemia. No intramural air, free air or collection. Mild free fluid. Surgical consultation advised. 2. Other nonacute appearing findings as above. Please note that all CT scans at this facility use dose modulation, iterative reconstruction, and/or weight-based dosing when appropriate to reduce radiation dose to as low as reasonably achievable. Dictated by Dustin Fitzgerald MD @ 09/11/2024 7:32:25 AM ECG Data Attestation: I personally reviewed and interpreted this ECG as follows: Prior ECG tracings: not available for review Interpretation: Sinus rhythm, rate of 59. Difficult to interpret EKG, patient really would not hold still. Intervals and axis do look pretty normal. Really can not assess for any minor ischemic changes but there is certainly no major ones. Discharge Plan Discharge Clinical Impression: Acute ischemia of small intestine Patient Disposition: XFER to OR Follow Up/Referrals: Tess Murphy DO [Primary Care Provider] -
--- OUTSIDE RECORDS SUMMARY | 2024-09-11 06:26 | XMS_ITS | Clinical Summary ---
Author Organization [employer] [facility] Address [address] [place] [id number] Care Team Providers Care It Support Manager Name Role Phone Tess Murphy DO Primary Care Provider [phone]- [phone] Allergies No known active allergies Medications multivitamin [...] Problem Noted Date Diagnosed Date Resolved Date alf (current) use of anticoagulants 03/13/2012 04/10/2012 Closed fracture of metatarsal bone(s) 08/03/2011 09/17/2013 Articular cartilage disorder, right knee 05/24/2011 09/11/2012 Right ankle pain 05/24/2011 09/17/2013 Hip bursitis 05/24/2011 09/17/2013 Elevated BP 06/11/2010 08/31/2010 Encounters Date Type Department Care Team Description 09/04/2024 Orders Only [facility] [address] [place] [address] Tess Murphy DO <No scans attached> 09/02/2024 10:25 AM CDT Office Visit [facility] [address] [facility] [address] Tess Murphy DO Blood Pressure; Knee Pain/problem (Bump on left knee 1 month) 09/02/2024 Travel 08/10/2024 12:15 PM CDT Office Visit [facility] [address] [facility] [address] [place] [address] Olesya Posada MD Derm Problem 08/10/2024 Travel 06/23/2024 6:49 AM PRESIDENT AND CHIEF EXECUTIVE OFFICER - 06/23/2024 11:59 PM PRESIDENT AND CHIEF EXECUTIVE OFFICER Hospital Encounter Al Leal MD 06/23/2024 Lab Requisition [facility] [phone] Al Leal MD 06/23/2024 Orders Only [facility] [address] [place] [address] Al Leal MD 1 scan: (1-Ord) [facility] 06/23/2024 Orders Only [facility] [address] [facility] [address] [place] [address] Al Leal MD <No scans attached> 06/23/2024 Surgery [facility] [address] [facility] [address] [place] [address] Al Leal MD Colonoscopy 06/21/2024 11:00 AM PRESIDENT AND CHIEF EXECUTIVE OFFICER Orders Only [facility] [address] [place] [address] Lab 06/21/2024 Travel 06/15/2024 Telephone [facility] [address] [place] [address] Al Leal MD [facility] [place] [facility] from Last 3 Months Immunizations Immunization [...] Status Comments Brother Father (Age 72) of OR Mother (Age 74) dementia, of chf Social [...] AM CDT Legal Sex Female 6:17 AM PRESIDENT AND CHIEF EXECUTIVE OFFICER Gender Identity Female 01/02/2020 7:50 AM CDT [...] 36.9 C (98.4 F) 06/01/2024 11:15 AM PRESIDENT AND CHIEF EXECUTIVE OFFICER Respiratory Rate - - Oxygen Saturation 100% 09/02/2024 10:27 AM CDT Inhaled Oxygen Concentration - - Weight 70.3 kg (155 lb) 09/02/2024 10:27 AM CDT Height 165.1 cm (5' 5) 06/01/2024 11:15 AM PRESIDENT AND CHIEF EXECUTIVE OFFICER Body Mass Index 25.79 06/01/2024 11:15 AM PRESIDENT AND CHIEF EXECUTIVE OFFICER Plan of Treatment Upcoming Encounters Date Type Department Care Team (Late st Contact Info) Description 10/14/2024 11:45 AM CDT Orders Only [facility] [address] [place] [address] Lab, [place] Maintenance Due Date Last [...] PATH TISSUE EXAM Routine 06/23/2024 8:17 AM PRESIDENT AND CHIEF EXECUTIVE OFFICER LAB TRACKING EVENT Routine 06/23/2024 8: 15 AM PRESIDENT AND CHIEF EXECUTIVE OFFICER COLONOSCOPY SCREENING Routine 06/23/2024 12:00 AM PRESIDENT AND CHIEF EXECUTIVE OFFICER Benign neoplasm of colon, unspecified part of colon HEPATIC FUNCTION PANEL Routine 06/21/2024 10:52 AM PRESIDENT AND CHIEF EXECUTIVE OFFICER Elevated AST (SGOT) CREATININE Routine 06/21/2024 10:52 AM PRESIDENT AND CHIEF EXECUTIVE OFFICER HTN (hypertension) POTASSIUM Routine 06/21/2024 10:52 AM PRESIDENT AND CHIEF EXECUTIVE OFFICER Pre-op exam XR DXA BONE DENSITY 2 [...] 09/03/2024 5:59 AM CDT FASTING:YES FASTING: YES [facility] [email or web address] CHEMISTRY Final Resu lt Performing Organization Address [facility]/ZIP Co de Phone Number [email or web address] [facility] [address] [place] [address], [facility] [address] [place] [address] * (ABNORMAL) CREATININE (09/02/2024 10:52 AM CDT) [...] 09/03/2024 5:59 AM CDT FASTING:YES FASTING: YES [facility] Prot-On CHEMISTRY Final Resu Performing Organization Address City/[facility] Co de Phone Number [email or web address] [facility] [address] [place] [phone], flux - [facility] [address] [place] [phone] * PATH TISSUE EXAM (08/10/2024 1:33 PM CDT) Only the most recent of2 resultswithin the time period is included. Case Report Pathology Report Case: [id number] Authorizing Provider: Olesya Posada MD Collected: 08/10/2024 1333 Ordering Location: [facility] Received: 08/10/2024 1334 [facility] Pathologist: Wilder Prado MD Specimen: Skin, right medial cheek 08/16/2024 5:54 PM CDT [facility] ENTRAL LABORATORY Final Diagnosis A) SKIN, RIGHT MEDIAL CHEEK, BIOPSY: 1. Excoriated folliculitis 2. No evidence of malignancy 08/16/2024 5:54 PM CDT [facility]- ENTRPR LABORATORY at 1754 CDT Comment A) Multiple deeper levels are evaluated to exclude malignancy. 08/16/2024 5:54 PM CDT [facility] Clinical Information rule out basal cell carcinoma 08/16/2024 5:54 PM CDT [facility] Gross Description A) Received in formalin, labeled with the patient's name and R medial cheek, is a 0.9 x 0.6 cm skin biopsy. There is a 0.3 x 0.1 cm flat clay lesion. The specimen is inked yellow, trisected and entirely submitted in one cassette. [facility] 08/11/2024 08/16/2024 5:54 PM CDT [facility] ENTRAL [facility] Microscopic Description The final diagnosis [...] on tissue sections. 08/16/2024 5:54 PM CDT [facility] Additional Information Interpreted at [facility] Central Laboratory - [address] [facility] [address], [place] [address] 08/16/2024 5:54 PM CDT [facility] Other SPECIMEN FROM SKIN / Unknown Non-Blood / Unknown 08/10/2024 1:33 PM CDT 08/10/2024 1:34 PM CDT us Olesya oPsada MD PATHOLOGY/CYTOLOGY Final Result [facility] [address] [place] [address], * LAB TRACKING EVENT (06/23/2024 8:15 AM PRESIDENT AND CHIEF EXECUTIVE OFFICER) Other (Other) Client Collect / Unknown 06/23/2024 8:15 AM PRESIDENT AND CHIEF EXECUTIVE OFFICER 06/23/2024 5:17 PM PRESIDENT AND CHIEF EXECUTIVE OFFICER Al Leal MD LAB BILL ONLY Final Res ult [facility]CEN[facility]AL LABORATORY [address] [place] [address], * COLONOSCOPY SCREENING (06/23/2024 12:00 AM PRESIDENT AND CHIEF EXECUTIVE OFFICER) Al Leal MD GI PROCEDURE ORD Final Re sult * LIVER PANEL (HEPATIC FUNCTION PANEL) (06/21/2024 10:52 AM PRESIDENT AND CHIEF EXECUTIVE OFFICER) PROTEIN, TOTAL 7.3 6.1 - 8.1 g/dL [...] BLOOD SPECIMEN / Unknown 06/21/2024 10:52 AM PRESIDENT AND CHIEF EXECUTIVE OFFICER 06/21/2024 10:53 AM PRESIDENT AND CHIEF EXECUTIVE OFFICER Narrative [facility] - 06/22/2024 5:51 AM PRESIDENT AND CHIEF EXECUTIVE OFFICER FASTING:NO FASTING: NO Tess Murphy DO CHEMISTRY Final Resu lt [email or web address] [facility] [address] [place] [address], [facility] [address] [place] [address] * (ABNORMAL) XR DXA BONE DENSITY 2 [...] recommended in 3-5 years. Oma Hernandez PA-C [facility] 03/10/2024 Narrative 03/10/2024 4:14 PM CDT For Patients: Results are automatically released to your [facility] ([email or web address]) account once available, in compliance with federal regulations. This means that you may see your results before your provider has had a chance to review them. Please allow 2-3 business days for your provider to comment on the results. XR DXA Bone Mineral Density (BMD) EXAM LOCATION: [address] [address] PATIENT NAME: Lakisha Hurtado DATE OF : [...] two scanners are made by the same jointer operator. PROCEDURE: Dual-energy x-ray absorptiometry performed with routine [...] REFLEX MEASURED LDL (02/24/2024 10:23 AM CDT) [facility] CHOLESTEROL, TOTAL 298(H) <200 mg/dL [facility] [...] Friedewald equation in the estimation of LDL-C. lA GA et al. INGA. 2013;310(19): 9832-4282 (http://education.LocalMed/faq/MWS813) CHOL/HDLC RATIO 2.4 <5.0 (calc) [facility] NON HDL CHOLESTEROL 172(H) <130 mg/dL (calc) [facility] Comment: For patients with diabetes plus 1 major ASCVD risk factor, treating to a non-HDL-C goal of <100 mg/dL (LDL-C of <70 mg/dL) is considered a therapeutic option. Blood BLOOD SPECIMEN / Unknown 02/24/2024 10:23 AM CDT 02/24/2024 10:24 AM CDT us Tses Murphy DO CHEMISTRY Final Resu lt [email or web address] [facility] [address] [place] [address], [facility] [address] [place] [address] * XR MAMMO USHA BILAT SCREEN (11/18/2023 [...] care provider. XR MAMMO USHA BILAT SCREEN [[id number]] CLINICAL HISTORY: This is an asymptomatic 68 y.o. patient. INDICATION FOR EXAM: Mammogram Screening. TECHNIQUE: CC & MLO views were obtained. This study was evaluated with the assistance of Computer-Aided Detection. Breast Tomosynthesis was used in interpretation. COMPARISON FILM: Yes 11/14/22 [facility] 11/12/21 [facility] FINDINGS: There are scattered areas of fibroglandular density. There are no dominant masses, suspicious micro calcifications or areas of architectural distortion. Tess Murphy DO MAMMO Final Resu lt * ANTI HCV [[id number]] (09/17/2013 9:41 AM CDT) HEPATITIS C ANTIBODY Non-Reacti ve Non-Reacti ve 09/17/2013 4:04 PM CDT [facility] Blood specimen (specimen) BLOOD SPECIMEN / Unknown Venipuncture / Unknown 09/17/2013 9:41 AM CDT 09/17/2013 9:41 AM CDT Narrative [facility] - 09/17/2013 4:04 PM CDT Antibodies to HCV not detected; does not exclude the possibility of exposure to HCV. Ramandeep Yen SEND OUTS Final R esult [facility] [address] [place] [address], [place] from Last 3 Months or Most Recently Relevant to Health Maintenance Insurance [employer] BLUE MR PB ONLY [employer] BLUE HB ONLY MEDICARE PART B HB ONLY Care Teams It Support Manager Relationship Specialty Start Date End Date Tess Murphy DO [address] [place] [address] PCP - General Family Practice 08/22/15
[2024-09-11 06:34] LABS: Basophils Absolute Auto 0.04 K/uL (0.00-0.30); Basophils Percent Auto 0.4 % (0.0-3.0); Eosinophils Absolute Auto 0.01 K/uL (0.00-0.50); Eosinophils Percent Auto 0.1 % (0.0-7.0); Hematocrit 36.6 % (33.0-51.0); Hemoglobin* 12.6 gm/dL (12.0-16.0); Immature Granulocytes Abs Auto 0.03 K/uL (0.00-0.30); Immature Granulocytes Pct Auto 0.3 %; Mean Corpuscular HGB Conc 34 gm/dL (32-36); Mean Corpuscular Hemoglobin 34 pg (26-34); Mean Corpuscular Volume 100 fL (80-100); Monocytes Percent Auto 5.7 % (0.0-11.0); Neutrophils Percent Auto 75.5 % (42.0-72.0); Platelet Count* 219 K/uL (140-440); RDW Coefficient of Variation % 13.1 % (11.5-15.5); Red Blood Count 3.67 m/uL (4.00-5.20); White Blood Count* 10.18 K/uL (4.50-11.00)
[2024-09-11 06:36] LABS: Lactate* 4.2 mmol/L (0.5-1.9)
[2024-09-11 06:37] LABS: Slide Review Reflex No
[2024-09-11] MEDS: HYDROmorphone 0.5 mg/0.5 ml inj IVP ×7 (06:39→21:58)
[2024-09-11] MEDS: ONDANSETRON 2 MG/ML inj 4 MG IVP (06:39)
[2024-09-11 06:53] LABS: Albumin* 4.6 g/dL (3.3-5.0); Chloride* 105 mmol/L (96-114); Potassium* 3.4 mmol/L (3.6-5.1); Sodium* 139 mmol/L (135-149)
[2024-09-11 06:55] LABS: Alanine Aminotransferase* 26 U/L (4-35); Aspartate Amino Transferase* 47 U/L (12-35); Blood Urea Nitrogen* 17 mg/dL (7-30); Est. Creatinine Clearance* 51.11; Estimated Glomerular Filt Rate 62 ml/min
[2024-09-11 06:56] LABS: Alkaline Phosphatase* 64 U/L (40-150); Anion Gap 18 mEq/L (7-15); Bilirubin Total* 0.9 mg/dL (0.1-1.5); Calcium* 9.3 mg/dL (8.4-10.6); Carbon Dioxide* 16 mmol/L (20-32); Glucose* 138 mg/dL (60-115); Lipase* 105 U/L (23-300); Total Protein* 7.7 g/dL (6.0-8.3)
[2024-09-11 06:59] LABS: C Reactive Protein* 0.9 mg/dL (0.5-1.0)
[2024-09-11 07:05] LABS: Creatinine, Point-of-Care* 0.9 mg/dl (0.6-1.3)
[2024-09-11] MEDS: LACTATED RINGERS 1000 ML 1,000 ML 500 ML IV (07:45)
--- NOTE | 2024-09-11 08:56 | P.GSHP_ITS ---
History of Present Illness History of Present Illness Date Seen: 09/11/24 Chief complaint: Abdominal pain Narrative: Lakisha Hurtado is a 69 year old female who developed the abrupt onset of diffuse abdominal pain at 1:30 a.m.. She states that the pain is a 10/10. She has never had pain like this before. Nothing seems to make it better or worse. She did vomit in the emergency department. She has not had a bowel movement or any other change in bowel history since the pain came on. In the emergency department she was found to have elevated lactate. She was given 1 L of fluids. [facility] Medical History (Updated 09/11/24 @ 09:07 by Juanis Casillas MD) Hypertension ?I10 - Essential (primary) hypertension (ICD-10) Surgical History (Updated 09/11/24 @ 09:01 by Juanis Casillas MD) S/P shoulder surgery ?Z98.890 - Other specified postprocedural states (ICD-10) S/P knee surgery ?Z98.890 - Other specified postprocedural states (ICD-10) Social History Narrative: Does use alcohol occasionally. She is retired. Lives with her Smoking Status: Never smoker Non-prescribed substance use: denies use Meds Home Medications and Allergies Allergies Allergy/AdvReac Type Severity Reaction Status Date / Time No Known Drug Allergies Allergy Verified 09/11/24 07:10 Exam Narrative: Exam Narrative: General appearance: Alert, cooperative, in obvious discomfort. Eyes: PERRLA, eye lids clear, and sclera white HENT Head: Normocephalic Ears: External ears normal Pulmonary: Clear to auscultation bilaterally Cardiovascular Heart: Regular rate and rhythm Extremities: warm and well perfused Gastrointestinal Abdominal: Distended. Diffusely tender. Musculoskeletal: Extremities: Upper: Both upper extremities have normal joint range of motion and intact strength. Lower: Both lower extremities have normal joint range of motion and intact strength. Skin: Normal skin color, texture, and turgor. Neurologic: No focal deficits Psychiatric: Alert, oriented, cooperative, normal affect. Const: Vital Signs, click to edit/add: Vital Signs - 24 hr 09/11/24 05:47 09/11/24 06:52 Temperature 97.0 F L Pulse Rate 54 L Pulse Rate [Left P ulse Oximeter] 73 Respiratory Rate 18 Blood Pressure 185/101 H Blood Pressure [Ri ght Upper Arm] 178/10 H Pulse Oximetry 100 96 Oxygen Delivery Me thod Room Air Results Results Labs: White blood cell count: 10 with a left shift Potassium 3.4 CO2 16 with an anion gap of 18 Lactate 4.2 AST 47 which is mildly elevated. Remainder of liver tests, lipase and electrolytes within normal limits. Point of care troponin normal Abdomen CT scan report/results: report reviewed and image reviewed Additional studies: CT scan abdomen pelvis done today: IMPRESSION: 1. Abnormal midabdominal small bowel. This appears represent a closed loop obstruction possibly due to volvulus or internal hernia. Clearly visible twisting morphology of the vascular pedicle at the mesentery. Poorly enhancing small bowel loops suggesting ischemia. No intramural air, free air or collection. Mild free fluid. Surgical consultation advised. 2. Other nonacute appearing findings as above. Dictated by Dustin Fitzgerald MD @ 09/11/2024 7:32:25 AM EKG shows sinus bradycardia - there is motion artifact and possible T-wave abnormality, however point care troponin within normal. Progress Note:A&P Assessment and plan (1) Lactic acidosis: Status: Acute (2) Acute ischemia of small intestine: Status: Acute (3) Hypokalemia: Status: Acute Plan The patient is a 69-year-old female with acute small-bowel ischemia secondary to possible volvulus versus internal hernia. There is a large amount of small bowel involvement. I discussed with the patient and her that emergent surgery is necessary. I will 1st attempt to relieve the obstruction and then determine bowel perfusion. It may be necessary to resect some intestine. It may also be necessary for a second-look operation. We did discuss recovery from surgery as well as risks, however, I did explain that risk and recovery will also depend on what is found intraoperatively. We will plan on surgery emergently. -NG tube was attempted in the ER - on CT scan patient does not have a large amount of matter in her stomach though she does have a hiatal hernia - will not delay surgery for continued attempts -will continue resuscitation intra and postop, recheck lactate and electrolytes -cardiac specialist postop and will recheck troponin versus repeat EKG when patient is more comfortable.
[2024-09-11] MEDS: PIPERACILLIN/TAZOBACTAM 3.375 GM INJ IVPB (09:12)
[2024-09-11] MEDS: LACTATED RINGERS 1000 ML 1,000 ML 125 ML IV ×2 (09:45→18:37)
--- NOTE | 2024-09-11 09:51 | W.PM.NB ---
Nerve Block Nerve Block Time Seen by Provider: 09:15 Date Seen: 09/11/24 Type of block requested by surgeon for post-operative analgesia: TAP Side: bilateral Time out performed: Yes Verification of patient name: Yes Verification of date of : Yes Site marking: site marked Name of person performing procedure: Kevin Man Continuous monitoring Was continuous monitoring of O2 sat, B/P, monitor car operator, recorded every 15 minutes?: Yes Procedure Checklist: sterile prep, needles and gloves Ultrasound guided. Images saved: Yes Medications given in 5ml increments after negative aspiration: Marcaine %: 0.25 mL: 30 Needle gauge: 20 and Exparel mL: 10 Needle gauge: 20 Patient tolerated procedure well: Yes Additional comments: Injected in 5ml increments after negative aspiration Block Charges Block Charge (with Pro Fee): TAP Bilateral Use of Ultrasound Machine for Block: Yes- US Guidance/pain block
--- NOTE | 2024-09-11 09:54 | P.ANES_ITS ---
Anesthesia Charges Start Date/Time Anesthesia Start Date: 09/11/24 Anesthesia Start Time: 09:05 Stop Date/Time Anesthesia Stop Date: 09/11/24 Anesthesia Stop Time: 11:23 Summary Emergency: BUDGET ASSISTANT Coding CPT Codes CPT Codes: ANESTH SURG LOWER ABDOMEN - 33316 ([id number]) P2 - PATIENT W/MILD SYST DISEASE, QZ - BUDGET ASSISTANT SVC W/O DESK SERGEANT BY Additional Codes: Summary - Emergency: BUDGET ASSISTANT ([id number])
--- NOTE | 2024-09-11 09:54 | W.ANESCHARGE ---
Anesthesia Charges Start Date/Time Anesthesia Start Date: 09/11/24 Anesthesia Start Time: 09:05 Stop Date/Time Anesthesia Stop Date: 09/11/24 Anesthesia Stop Time: 11:23 Summary Emergency: FIELD COLLECTOR Coding CPT Codes CPT Codes: ANESTH SURG LOWER ABDOMEN - 79339 ([id number]) P2 - PATIENT W/MILD SYST DISEASE, QZ - FIELD COLLECTOR SVC W/O CHECK WEIGHER BY Additional Codes: Summary - Emergency: FIELD COLLECTOR ([id number])
--- NOTE | 2024-09-11 09:59 | SUR.OPER ---
RN updated patients at 0950 about procedure and that everything is going well.
[2024-09-11] MEDS: LACTATED RINGERS 1000 ML 1,000 ML 75 ML IV (10:23)
--- NOTE | 2024-09-11 10:30 | SUR.OPER ---
RN updated patients at 10:29 about procedure and that we are closing.
--- NOTE | 2024-09-11 11:29 | P.GSOP_ITS ---
Operative Note Date of procedure: 09/11/24 Pre-op diagnosis: Small-bowel ischemia Post-op diagnosis: Internal hernia causing volvulus and small bowel ischemia Type of Procedure: 1. Exploratory laparotomy 2. Adhesiolysis 3. Small-bowel resection Indications: The patient is a 69-year-old female who presented to the emergency department wi th severe diffuse abdominal pain that began abruptly this morning at 1:30 a.m.. She came to the emergency department. She was found to have elevated lactate and CT scan showed concern for small bowel ischemia with possible volvulus or internal hernia. I recommended emergent exploration with possible bowel resection. The patient agreed to proceed. Procedure Description: After discussing the risks and benefits of the procedure, the patient signed informed consent.? The operative site was marked and the patient was brought to the operating room and placed on the operating table in supine position.? Care was taken to pad the patient's pressure points.?? The patient was then intubated by anesthesia.??An NG tube was placed. A tap block was also performed. Please see anesthesia notes for details. The operative site was then prepped and draped in the usual sterile fashion.? A time-out was then performed. A midline incision was then created. Dissection was taken down into the subcutaneous tissue using cautery. The fascia was incised in the midline using cautery. The peritoneum was then entered. There was a large amount of bloody a scites which was suctioned from the abdomen. There were immediately visible loops of frankly ischemic small bowel. This was tethered in place. There was omentum which was stuck to the retroperitoneum which had created an internal hernia. I was able to get around this with my fingers and finger fracture the omentum. Once this was released, the omental edge was examined. There was no bleeding noted. I then examined the small bowel. A fair amount of bowel appeared as mentioned, frankly ischemic. Another portion appeared hemorrhagic. The involved mesentery was similarly hemorrhagic. I began by running the bowel from the terminal ileum to assess the amount of involved intestine. The patient had 35 cm of healthy bowel from the terminal ileum. There was a sharp demarcation here of normal, decompressed and tragic bowel. Next, the cm proximal to this the bowel appeared to questionably viable. At the anti mesenteric border, the tissue appeared darker and more ischemic, however it was quickly pinking up. Next, 50 cm proximal to this again fairly well demarcated, the bowel was frankly ischemic which did not improve after releasing the obstruction. The patient then had 280 cm of distal ileum and jejunum which were normal in caliber without any signs of ischemia. Again this was sharply demarcated from the ischemic area. There were no other abnormalities noted. No masses were palpable in the mesentery. I then elected to resect the frankly ischemic area while I waited for the portion of the bowel which was in question to have the opportunity to reperfuse. I began by creating a mesenteric window just proximal to the area of demarcation of perfusion. A blue load TAMMY stapler was then used to divide the small bowel. A LigaSure was then used to divide the mesentery. I divided the small bowel with a 2nd blue load TAMMY stapler, removing the ischemic area, and waiting for the questionable area to reperfuse. The proximal portion appeared perfused, however just proximal to the cut off of normal bowel, there was approximately 1 cm area which was deep purple/black - it appeared to be the area of the point of the adhesion which caused the obstruction. This had improved such that only the middle portion remained dark, however after an additional 10 minutes, it was unchanged. Even though the bowel proximal to this area appeared viable, I was concerned about leaving this area behind. Fortunately, resecting this area was only 20 additional cm of small bowel, therefore I elected to resect this. I created a mesenteric window just distal to this area of demarca tion. A blue load TAMMY stapler was then used to transect small bowel. The small bowel was then sent to pathology. The two segments of small bowel were sent together to pathology with a single stitch at the most proximal end and a double stitch at the most distal end. I then began my anastomosis. The 2 ends of the bowel were brought together. A stay stitch was placed. An enterotomy was made in each and. Through this each side of a blue load TAMMY stapler was then passed. A 70 mm anastomosis was then created. The staple line was inspected for bleeding. There was none. The common enterotomy was then closed with 3-0 silk suture in an interrupted, imbricating Lembert fashion. A crotch stitch was placed with 3-0 Vicryl. The mesenteric defect was then closed with a running 3-0 Vicryl stitch. The anastomosis appeared widely patent. This was then placed back into the abdomen. The abdomen was irrigated with warm saline. There had been no spillage of succus, however the patient had a fair amount of ascites prior to irrigation. The omentum was then placed over the small bowel and, after changing gloves and obtaining clean instruments, the fascia was closed with looped 0 Maxon in a running fashion. The skin was then closed with 3-0 Vicryl dermal and 4-0 Monocryl running subcuticular suture. Sterile dressings were applied. Instrument sponge needle counts were correct at the end of the case. The patient was then woken and transported to the recovery area in stable condition. ? The patient tolerated the procedure well. Findings: 1. Internal hernia from an omental adhesion. 2. Approximately 70 cm of frankly ischemic bowel removed, an additional 20 cm of bowel with questionable viability removed, for 100 cm total. 3. Patient has greater than 300 cm of small bowel remaining. Anesthesia: GETA Surgeon: Juanis Casillas MD Estimated blood loss (mL): 10 Additional Specimen Information: Small-bowel (2 contiguous segments of small bowel were sent together with a single stitch at the most proximal end and a double stitch at the most distal end) Condition: stable Disposition: PACU
--- NOTE | 2024-09-11 12:16 | P.IMCN_ITS ---
Date of Consult Patient: Timothy Patient Consult date: 09/11/24 Requesting Physician: General Surgery Primary Care Provider: Tess Murphy, DO Consult Narrative Reason for consult: Hypertension, metabolic acidosis Narrative: Lakisha Hurtado is a 69 year old female with h/o HTN, ascending aortic dilatation, mild to moderate aortic valve regurgitation, osteopenia, and benign neoplasm of the colon who went to bed feeling well last night and woke up at 1:30 a.m. this morning with sudden onset of diffuse abdominal pain. She waited, but the pain did not go away and she continued to get more and more distended. She felt nauseous and had emesis, denies bloody or coffee-ground emesis. She came to the ER where she was found to have ischemic small bowel for which she went to the OR. Dr. Casillas did an exploratory laparotomy with adhesiolysis and small-bowel resection. Post operatively she is in the CCU. Her , Jna, is with her. She tells me she feels much better already. While we were talking, she became nauseous. This improved after receiving an aromatherapy patch. Review of Systems Status of ROS: Reports: 10 or more systems reviewed and unremarkable except as noted in History and below [facility] Medical History (Updated 09/11/24 @ 13:01 by Amber Osman MD) Abnormal echocardiogram (03/16/24) ?R93.1 - Abnormal findings on diagnostic imaging of heart and coronary circulation (ICD-10) Ascending aorta dilatation ?I77.810 - Thoracic aortic ectasia (ICD-10) Aortic valve regurgitation ?I35.1 - Nonrheumatic aortic (valve) insufficiency (ICD-10) Osteopenia ?M85.80 - Other specified disorders of bone density and structure, unspecified site (ICD-10) Stress fracture of fibula (2015) ?M84.369A - Stress fracture, unspecified tibia and fibula, initial encounter for fracture (ICD-10) Benign neoplasm of colon ?D12.6 - Benign neoplasm of colon, unspecified (ICD-10) Menopause ?Z78.0 - Asymptomatic menopausal state (ICD-10) Insomnia ?G47.00 - Insomnia, unspecified (ICD-10) Hypertension ?I10 - Essential (primary) hypertension (ICD-10) Surgical History (Updated 09/11/24 @ 13:11 by Amber Osman MD) History of total right knee replacement (~02/2012) ?Z96.651 - Presence of right artificial knee joint (ICD-10) S/P laparotomy ?Z98.890 - Other specified postprocedural states (ICD-10) S/P shoulder surgery ?Z98.890 - Other specified postprocedural states (ICD-10) Family History (Updated 09/11/24 @ 12:15 by Amber Osman MD) Father Heart disease Mother Heart disease Social History (Updated 09/11/24 @ 12:46 by Amber Osman MD) Narrative: She is retired from [employer]. Lives with her . Smoked for 30 packyears, quit in 2008. Drinks a few alcoholic drinks per week. Smoking Status: Never smoker Non-prescribed substance use: denies use Meds Home Medications and Allergies Home Medications ?Medication ?Instructions ?Recorded ?Confirmed ?Type escitalopram oxalate 5 mg tablet 5 mg PO QAM 09/11/24 09/11/24 History losartan 50 mg tablet 75 mg PO DAILY 09/11/24 09/11/24 History melatonin 3 mg tablet 3 mg PO HS 09/11/24 09/11/24 History metoprolol succinate 25 mg 25 mg PO DAILY 09/11/24 09/11/24 History tablet,extended release 24 hr omeprazole 20 mg capsule,delayed 20 mg PO DAILY 09/11/24 09/11/24 History release Allergies Allergy/AdvReac Type Severity Reaction Status Date / Time No Known Drug Allergies Allergy Verified 09/11/24 07:10 Exam Narrative: Exam Narrative: General: No acute distress. Awake alert oriented x3. HEENT: Normocephalic atraumatic, pupils equally round and reactive to light and accommodation. Oropharynx clear. Mucous membranes are dry. No cervical lymphadenopathy, thyromegaly or carotid bruits. No JVD. Cardiovascular: Regular rate and rhythm. No murmurs, gallops, or rubs. Chest: No increased work of breathing. Clear to auscultation bilaterally. No crackles or wheezes. Abdomen: Postsurgical abdomen. Slightly distended, bandage is clean, dry, and intact. Extremities: Extremities are cold, slightly mottled with prolonged capillary refill. No edema, no cyanosis or clubbing. Skin: Slight pallor, No jaundice, no rashes on visible skin. Const: Vital Signs, click to edit/add: Vital Signs - 24 hr 09/11/24 05:47 09/11/24 06:52 09/11/24 11:18 Temperature 97.0 F L 96.7 F L Pulse Rate 54 L 78 Pulse Rate [Left P ulse Oximeter] 73 Respiratory Rate 18 15 Blood Pressure 185/101 H 126/87 Blood Pressure [Ri ght Upper Arm] 178/10 H Pulse Oximetry 100 96 95 Oxygen Delivery Me thod Room Air Room Air 09/11/24 11:25 09/11/24 11:30 09/11/24 11:35 Temperature Pulse Rate 68 67 64 Pulse Rate [Left P ulse Oximeter] Respiratory Rate 15 16 15 Blood Pressure 120/76 129/71 134/74 Blood Pressure [Ri ght Upper Arm] Pulse Oximetry 95 94 94 Oxygen Delivery Me thod 09/11/24 11:40 09/11/24 11:45 Temperature 97.1 F L Pulse Rate 67 64 Pulse Rate [Left P ulse Oximeter] Respiratory Rate 16 16 Blood Pressure 136/78 140/77 H Blood Pressure [Ri ght Upper Arm] Pulse Oximetry 95 95 Oxygen Delivery Me thod Room Air Labs Labs: Short CBC 09/11/24 Range/Units 06:10 WBC 10.18 (4.50-11.00) K/uL Hgb 12.6 (12.0-16.0) gm/dL Hct 36.6 (33.0-51.0) % Plt Count 219 (140-440) K/uL BMP 09/11/24 06:10 Sodium 139 Potassium 3.4 L Chloride 105 Carbon Dioxide 16 L BUN 17 Creatinine 1.0 Glucose 138 H Calcium 9.3 Liver Function 09/11/24 Range/Units 06:10 Total Bilirubin 0.9 (0.1-1.5) mg/dL AST 47 H (12-35) U/L ALT 26 (4-35) U/L Alkaline Phosphatase 64 (40-150) U/L Albumin 4.6 (3.3-5.0) g/dL Lactate elevated at 4.2 at 6:10 a.m. this morning. 09/11/2024 6:50 a.m. EKG: Sinus bradycardia, 59 beats per minute, cannot rule out anterior infarct, age undetermined, T-wave abnormality, consider inferior ischemia. Compared to an EKG I found at [facility] 03/10/2024 she no longer has premature atrial complexes with aberrant conduction, but the interior year and inferior findings are new. 09/11/2024 12:37 p.m. EKG: Normal sinus rhythm, 69 beats per minute, normal EKG. Ordering Physician: Luann Tan M.D. Date of Service: 09/11/24 Procedure(s): CT abdomen pelvis w con Accession Number(s): [id number] cc: Luann Tan M.D.; Tess Murphy D.O.~ For Patients: As a result of the Century Cures Act, medical imaging exams and procedure reports are released immediately into your electronic medical record. You may view this report before your referring provider. If you have questions, please contact your health care provider. INDICATION: Abdominal pain COMPARISON: None TECHNIQUE: CT examination of the abdomen and pelvis was performed following the uneventful intravenous administration of 75 cc of Isovue 370. Thin section axial images were obtained from the lung bases through the pubic symphysis. Oral contrast was not administered. Please note that all CT scans at this facility use dose modulation, iterative reconstruction, and/or weight-based dosing when appropriate to reduce radiation dose to as low as reasonably achievable. FINDINGS: LUNG BASES: Basilar opacities probably due to atelectasis or scarring.Heart size top normal the lung bases. Large hiatal hernia admitting the fundus and a portion of the corpus of the stomach. LIVER/BILIARY SYSTEM:Steatosis. Low-density lesion likely a cyst. No biliary ductal dilation. Normal-appearing gallbladder. ADRENALS: Normal KIDNEYS, URETERS and BLADDER:The kidneys appear normal. No visible mass, calculus or hydronephrosis. The ureters and bladder as visualized appear normal. SPLEEN:Normal appearance. PANCREAS: Appears normal. RETROPERITONEUM and MESENTERY: No mass or adenopathy. Abnormal mesenteric vasculature as described below GASTROINTESTINAL SYSTEM: Significantly dilated abnormal appearing midabdominal small bowel with engorgement of the mesentery and twisting morphology identified best seen when scrolling through coronal images number 40 through 66. This probably represents a close loop obstruction associated with a volvulus or internal hernia. Some of the small bowel loops show poor perfusion suggesting ischemia. Surgical consultation is advised. No definite intramural air or free air. Mild free fluid. PELVIS: No mass, adenopathy or free fluid. OSSEOUS STRUCTURES and ABDOMINAL WALL: There is an age-appropriate appearance of the osseous structures.No significant abdominal wall defect. Discussed with Dr. Tan at 7:30 a.m. on September 11, 2024 IMPRESSION: 1. Abnormal midabdominal small bowel. This appears represent a closed loop obstruction possibly due to volvulus or internal hernia. Clearly visible twisting morphology of the vascular pedicle at the mesentery. Poorly enhancing small bowel loops suggesting ischemia. No intramural air, free air or collection. Mild free fluid. Surgical consultation advised. 2. Other nonacute appearing findings as above. Please note that all CT scans at this facility use dose modulation, iterative reconstruction, and/or weight-based dosing when appropriate to reduce radiation dose to as low as reasonably achievable. Dictated by Dustin Fitzgerald MD @ 09/11/2024 7:32:25 AM (Electronically Signed) Assessment and Plan Assessment and plan (1) Acute ischemia of small intestine: Problem comment: - 09/11 now s/p small-bowel resection Status: Acute (2) S/P laparotomy: Problem comment: 09/11/24 with partial small bowel resection by Dr. Casillas for ischemic small bowel - routine post op cares - Piperacillin/Tazobactam - hydrocodone, hydromorphone and ondansetron ordered prn - VTE prophylaxis with low dose enoxaparin and SCDs Status: Acute (3) Lactic acidosis: Problem comment: - 09/11 due to ischemic bowel, lactate 4.2. Has gotten IVF and is s/p small bowel resection, recheck lactate, continue IVF maintenence at 125 cc/hr. Also will give LR 500cc bolus over 1 hr for decreased capillary refill and mottling on exam. Monitor UO. Status: Acute (4) Hypokalemia: Problem comment: - Due to ongoing nausea and NPO, replace via IV, recheck in am. Status: Acute (5) Hypertension: Problem comment: - continue metoprolol. Hold losartan for now while monitoring postop as she may become hypotensive. If improved by tomorrow, restart with morning dose. Status: Chronic (6) Abnormal EKG: Problem comment: - abnormal EKG this morning prior to surgery when compared to EKG from last year, troponin was unremarkable, patient has not had any CP or SOB. Recheck EKG post op is reassuring. Monitor on telemetry. Status: Acute
[2024-09-11 13:18] LABS: Lactate* 1.1 mmol/L (0.5-1.9)
[2024-09-11] MEDS: LACTATED RINGERS 500 ML 500 ML IV (13:40)
[2024-09-11] MEDS: POTASSIUM CHLORIDE 10 MEQ/100 ML PIGGYBACK 100 MEQ IVPB (13:40)
[2024-09-11 13:44] LABS: Chloride* 105 mmol/L (96-114)
[2024-09-11 13:45] LABS: Potassium* 3.9 mmol/L (3.6-5.1); Sodium* 137 mmol/L (135-149)
[2024-09-11 13:48] LABS: Anion Gap 10 mEq/L (7-15); Blood Urea Nitrogen* 20 mg/dL (7-30); Calcium* 8.2 mg/dL (8.4-10.6); Carbon Dioxide* 22 mmol/L (20-32); Creatinine* 0.8 mg/dL (0.5-1.5); Est. Creatinine Clearance* 51.11; Estimated Glomerular Filt Rate 81 ml/min; Glucose* 154 mg/dL (60-115)
[2024-09-11] MEDS: ONDANSETRON 2 MG/ML inj IVP ×2 (13:53→15:52)
[2024-09-11] MEDS: PIPERACILLIN/TAZOBACTAM 3.375 GM in 0.9 % SODIUM CHLORIDE Mini-bag 100 ML IVPB ×2 (15:37→21:58)
[2024-09-11] MEDS: 0.9 % SODIUM CHLORIDE 250 ml IV (15:38)
--- NOTE | 2024-09-11 19:12 | PC.NURSE ---
Pt pleasant and cooperative with cares. Up to BR and walk in sharma w/SBA. Pain controlled with surgical TAP block and PRN meds per MAR. IS education complete and pt able to comply independently.
[2024-09-11] MEDS: HYDROCODONE-ACETAMIN 5-325 MG 1 TAB PO (20:37)
[2024-09-11] MEDS: SODIUM CHLORIDE 0.9 % (FLUSH) 10 ML SYRINGE 5 ML IVF (22:01)
[2024-09-11] MEDS: PANTOPRAZOLE SODIUM 40 MG INJ IVP (22:17)
[2024-09-12] MEDS: HYDROCODONE-ACETAMIN 5-325 MG 1 TAB PO ×5 (02:02→23:41)
[2024-09-12] MEDS: LACTATED RINGERS 1000 ML 1,000 ML 125 ML IV ×3 (02:02→18:05)
[2024-09-12 02:25] VITALS: BP 138/83; PULSE 86; RESP 18; TEMP 36.8; O2SAT 98
[2024-09-12] MEDS: OMEPRAZOLE 20 MG CAPSULE DR PO (06:10)
[2024-09-12] MEDS: ONDANSETRON 2 MG/ML inj 4 MG IVP (06:10)
--- NOTE | 2024-09-12 06:24 | PC.NURSE ---
End of shift report [id number]: Alert and oriented x 4. Pain well managed with current regimen. Abdomen tender to touch, bowel sounds active x 4 quadrants. Tolerating clear liquid diet. Nausea well controlled with PRN zofran. At 2145 patient reporting increased acid reflux and burping, updated and new order for 1 x dose of protonix. Patient reports reflux symptoms subsided after medication. Incision to midline clean, dry and intact. No redness or warmth around incision noted. SBA with transfers and ambulation.
[2024-09-12 06:39] LABS: Basophils Absolute Auto 0.02 K/uL (0.00-0.30); Basophils Percent Auto 0.2 % (0.0-3.0); Hematocrit 28.8 % (33.0-51.0); Hemoglobin* 9.5 gm/dL (12.0-16.0); Immature Granulocytes Abs Auto 0.02 K/uL (0.00-0.30); Immature Granulocytes Pct Auto 0.2 %; Lymphocytes Percent Auto 11.2 % (20-44); Mean Corpuscular HGB Conc 33 gm/dL (32-36); Mean Corpuscular Hemoglobin 35 pg (26-34); Mean Corpuscular Volume 105 fL (80-100); Monocytes Percent Auto 9.6 % (0.0-11.0); Neutrophils Percent Auto 78.8 % (42.0-72.0); Platelet Count* 123 K/uL (140-440); RDW Coefficient of Variation % 13.9 % (11.5-15.5); Red Blood Count 2.74 m/uL (4.00-5.20); White Blood Count* 10.52 K/uL (4.50-11.00)
[2024-09-12 06:50] LABS: Slide Review Reflex No
[2024-09-12 06:51] LABS: Albumin* 3.2 g/dL (3.3-5.0); Chloride* 104 mmol/L (96-114); Potassium* 3.8 mmol/L (3.6-5.1); Sodium* 135 mmol/L (135-149)
[2024-09-12 06:53] LABS: Blood Urea Nitrogen* 19 mg/dL (7-30); Est. Creatinine Clearance* 51.11; Estimated Glomerular Filt Rate 62 ml/min
[2024-09-12 06:54] LABS: Alanine Aminotransferase* 20 U/L (4-35); Alkaline Phosphatase* 32 U/L (40-150); Anion Gap 7 mEq/L (7-15); Aspartate Amino Transferase* 33 U/L (12-35); Bilirubin Direct* 0.2 mg/dL (0.0-0.5); Bilirubin Total* 0.7 mg/dL (0.1-1.5); Calcium* 8.1 mg/dL (8.4-10.6); Carbon Dioxide* 24 mmol/L (20-32); Glucose* 86 mg/dL (60-115); Total Protein* 5.8 g/dL (6.0-8.3)
[2024-09-12 07:00] VITALS: BP 125/75; PULSE 79; PULSE 86; RESP 18; TEMP 36.4; O2SAT 94
--- NOTE | 2024-09-12 09:39 | P.IMPN_ITS ---
Assessment and Plan Assessment and plan (1) S/P laparotomy: Problem comment: 09/11/24 with partial small bowel resection by Dr. Casillas for ischemic small bowel - routine post op cares - Piperacillin/Tazobactam x3 doses, complete - hydrocodone, hydromorphone and ondansetron ordered prn - VTE prophylaxis with low dose enoxaparin and SCDs - 09/12 no active BS or flatus yet. NPO. Continue IVF. Good UO. Status: Acute (2) Acute ischemia of small intestine: Problem comment: - 09/11 now s/p small-bowel resection Status: Acute (3) Hypertension: Problem comment: - continue metoprolol; patient takes at HS. Continue to hold losartan for now while monitoring postop since BP is not elevated. Status: Chronic (4) Abnormal EKG: Problem comment: - abnormal EKG 09/11 prior to surgery when compared to EKG from last year, troponin was unremarkable, patient has not had any CP or SOB. Recheck EKG post op is reassuring. Monitoring on telemetry. Status: Acute (5) Hypokalemia: Status: Resolved (6) Lactic acidosis: Problem comment: - 09/11 due to ischemic bowel, lactate 4.2. Has gotten IVF and is s/p small bowel resection, recheck lactate, continue IVF maintenence at 125 cc/hr. Also will give LR 500cc bolus over 1 hr for decreased capillary refill and mottling on exam. Monitor UO. - Resolved 09/11. Status: Resolved Subjective Time Seen by Provider: 08:00 Date Seen: 09/12/24 Interval history: Lakisha is feeling better today. She had a lot of nausea yesterday, which improved after she got IV protonix. She has not had flatus or BM yet. We discussed the importance of taking big breaths, sitting in the chair, and ambulation. She has an IS at bedside. We discussed how to use it correctly. Exam Narrative: Exam Narrative: General: No acute distress. Awake alert oriented. No pallor or jaundice. Cardiovascular: Regular rate and rhythm. No murmurs, gallops, or rubs. Chest: No increased work of breathing. Clear to auscultation bilaterally. No crackles or wheezes. Abdomen: No bowel sounds. Slightly distended, bandage is clean, dry, and intact. There is mild, blanchable erythema around the inferior portion of the bandage, no induration or increased calor to this area. She is mildly tender at the incision and to the right abdomen, both upper and lower quadrants. No rebound tenderness or guarding. Extremities: Extremities are warm and well perfused. No edema. Const: Vital Signs, click to edit/add: Vital Signs - 24 hr 09/11/24 11:18 09/11/24 11:25 09/11/24 11:30 Temperature 96.7 F L Pulse Rate 78 68 67 Pulse Rate [Pulse Oximeter] Respiratory Rate 15 15 16 Blood Pressure 126/87 120/76 129/71 Blood Pressure [Le ft Arm] Pulse Oximetry 95 95 94 Oxygen Delivery Wa thod Room Air 09/11/24 11:35 09/11/24 11:40 09/11/24 11:45 Temperature 97.1 F L Pulse Rate 64 67 64 Pulse Rate [Pulse Oximeter] Respiratory Rate 15 16 16 Blood Pressure 134/74 136/78 140/77 H Blood Pressure [Le ft Arm] Pulse Oximetry 94 95 95 Oxygen Delivery Wa thod Room Air 09/11/24 12:00 09/11/24 12:05 09/11/24 12:15 Temperature 96.8 F L 96.8 F L 96.4 F L Pulse Rate 71 69 68 Pulse Rate [Pulse Oximeter] Respiratory Rate 18 18 16 Blood Pressure 145/89 H 129/86 146/90 H Blood Pressure [Le ft Arm] Pulse Oximetry 94 97 94 [facility] Room [facility] Room Air 09/11/24 12:30 09/11/24 12:45 09/11/24 13:00 Temperature Pulse Rate 76 76 71 Pulse Rate [Pulse Oximeter] Respiratory Rate 16 16 18 Blood Pressure 130/85 151/90 H Blood Pressure [Le ft Arm] Pulse Oximetry 96 97 96 Oxygen Delivery Wa thod Room Air Room Air Room Air 09/11/24 13:15 09/11/24 13:30 09/11/24 14:00 Temperature 97.1 F L Pulse Rate 73 85 81 Pulse Rate [Pulse Oximeter] Respiratory Rate 16 18 18 Blood Pressure 141/89 H 131/111 H 143/93 H Blood Pressure [Le ft Arm] Pulse Oximetry 97 96 95 Oxygen Delivery Me thod Room Air Room Air Room Air 09/11/24 15:00 09/11/24 15:00 09/11/24 19:00 Temperature Pulse Rate 78 87 Pulse Rate [Pulse Oximeter] Respiratory Rate 18 Blood Pressure Blood Pressure [Le ft Arm] Pulse Oximetry 97 Oxygen Delivery Wa thod Room Air 09/11/24 19:00 09/11/24 19:59 09/11/24 23:00 Temperature 97.2 F L Pulse Rate 82 Pulse Rate [Pulse Oximeter] 81 81 Respiratory Rate 18 18 Blood Pressure Blood Pressure [Le ft Arm] 153/88 H Pulse Oximetry 99 Oxygen Delivery Wa thod Room Air 09/11/24 23:00 09/11/24 23:00 09/11/24 23:00 Temperature 98.4 F Pulse Rate Pulse Rate [Pulse Oximeter] 81 86 Respiratory Rate 18 16 16 Blood Pressure Blood Pressure [Le ft Arm] 137/89 Pulse Oximetry 98 98 [facility] Room Air 09/12/24 02:25 09/12/24 07:00 Temperature 98.2 F Pulse Rate 86 Pulse Rate [Pulse Oximeter] 86 Respiratory Rate 18 Blood Pressure Blood Pressure [Le ft Arm] 138/83 Pulse Oximetry 98 [facility] Labs Labs: Laboratory Results - last 24 hr 09/11/24 09/12/24 13:13 06:12 WBC 10.52 RBC 2.74 L Hgb 9.5 L Hct 28.8 L MCV 105 H MCH 35 H MCHC 33 RDW Coeff of Calvin 13.9 Plt Count 123 L Neut % (Auto) 78.8 H Lymph % (Auto) 11.2 L [place] % (Auto) 9.6 Eos % (Auto) 0.0 Baso % (Auto) 0.2 Neut # (Auto) 8.30 H Lymph # (Auto) 1.20 [place] # (Auto) 1.00 H Eos # (Auto) 0.00 Baso # (Auto) 0.02 Abs Immat Gran (auto) 0.02 Imm/Tot Granulo (auto) 0.2 Sodium 137 135 Potassium 3.9 3.8 Chloride 105 104 Carbon Dioxide 22 24 Anion Gap 10 7 BUN 20 19 Creatinine 0.8 1.0 Estimated Creat Clear 51.11 51.11 Estimated GFR 81 62 Glucose 154 H 86 Lactate 1.1 Calcium 8.2 L 8.1 L Total Bilirubin 0.7 Direct Bilirubin 0.2 AST 33 ALT 20 Alkaline Phosphatase 32 L Total Protein 5.8 L Albumin 3.2 L
[2024-09-12] MEDS: ESCITALOPRAM 10 MG TABLET 5 MG PO (09:58)
[2024-09-12 11:00] VITALS: BP 125/80; PULSE 82; RESP 18; TEMP 37; O2SAT 95
--- NOTE | 2024-09-12 12:16 | PM.GSPN ---
Subjective Subjective Date Seen: 09/12/24 Interval history: Nausea for much of the day yesterday. Today she feels better. She has been up ambulating and using IS. Exam Narrative: Exam Narrative: General: No acute distress CV regular rate and rhythm Respiratory: Clear to auscultation bilaterally Abdomen: Appropriately tender for the postop state. Dressing in place. No drainage. Const: Vital Signs, click to edit/add: Vital Signs - 24 hr 09/11/24 12:30 09/11/24 12:45 09/11/24 13:00 Temperature Pulse Rate 76 76 71 Pulse Rate [Pulse Oximeter] Respiratory Rate 16 16 18 Blood Pressure 130/85 151/90 H Blood Pressure [Le ft Arm] Pulse Oximetry 96 97 96 Oxygen Delivery Ne thod Room Air Room Air Room Air 09/11/24 13:15 09/11/24 13:30 09/11/24 14:00 Temperature 97.1 F L Pulse Rate 73 85 81 Pulse Rate [Pulse Oximeter] Respiratory Rate 16 18 18 Blood Pressure 141/89 H 131/111 H 143/93 H Blood Pressure [Le ft Arm] Pulse Oximetry 97 96 95 Oxygen Delivery Ne thod Room Air Room Air Room Air 09/11/24 15:00 09/11/24 15:00 09/11/24 19:00 Temperature Pulse Rate 78 87 Pulse Rate [Pulse Oximeter] Respiratory Rate 18 Blood Pressure Blood Pressure [Le ft Arm] Pulse Oximetry 97 Oxygen Delivery Ne thod Room Air 09/11/24 19:00 09/11/24 19:59 09/11/24 23:00 Temperature 97.2 F L Pulse Rate 82 Pulse Rate [Pulse Oximeter] 81 81 Respiratory Rate 18 18 Blood Pressure Blood Pressure [Le ft Arm] 153/88 H Pulse Oximetry 99 Oxygen Delivery Ne thod Room Air 09/11/24 23:00 09/11/24 23:00 09/11/24 23:00 Temperature 98.4 F Pulse Rate Pulse Rate [Pulse Oximeter] 81 86 Respiratory Rate 18 16 16 Blood Pressure Blood Pressure [Le ft Arm] 137/89 Pulse Oximetry 98 98 Oxygen Delivery Ne thod Room Air Room Air 09/12/24 02:25 09/12/24 07:00 09/12/24 07:00 Temperature 98.2 F Pulse Rate 86 Pulse Rate [Pulse Oximeter] 86 79 Respiratory Rate 18 18 Blood Pressure Blood Pressure [Le ft Arm] 138/83 Pulse Oximetry 98 Oxygen Delivery Me thod Room Air 09/12/24 07:00 09/12/24 07:00 09/12/24 11:00 Temperature 97.5 F L 98.6 F Pulse Rate Pulse Rate [Pulse Oximeter] 79 82 Respiratory Rate 18 18 18 Blood Pressure Blood Pressure [Le ft Arm] 125/75 125/80 Pulse Oximetry 94 94 95 Oxygen Delivery Me thod Room Air Room Air Room Air Labs/Imaging Labs Labs: WBC 10.5 Hgb 9.5 from 12.6 Electrolytes WNL. Progress Note:A&P Assessment and plan (1) S/P laparotomy: Status: Acute (2) Abnormal EKG: Status: Acute (3) Hypertension: Status: Chronic (4) Anemia: Status: Acute Plan Patient is postop day 1 status post exploratory laparotomy and small-bowel resection for bowel ischemia secondary to internal hernia. She is feeling better today. -clear liquid diet -continue ambulation and incentive spirometry -continue maintenance IV fluids until taking adequate p.o. -Lovenox held today for a hemoglobin drift postop. This may be dilutional as she had minimal blood loss during the operation. Will plan on rechecking in the morning.
--- NOTE | 2024-09-12 14:35 | PC.NURSE ---
Shift Note: Pt friendly and cooperative. Surgical dressing C,D,&I. Pain well controlled, pt rates 4/10, one Palmer given. Ambulating hallways frequently with SBA, she has walked 150-200ft 3x this shift. BS present/hypoactive, pt continues to deny flatus. She has been tolerating clear liquids without difficulty.
[2024-09-12 15:00] VITALS: BP 148/91; PULSE 79; PULSE 84; RESP 18; TEMP 36.8; O2SAT 97
[2024-09-12] MEDS: ACETAMINOPHEN 325 MG TABLET 650 MG PO (15:57)
[2024-09-12 19:00] VITALS: BP 166/100; PULSE 84; RESP 18; TEMP 36.4; O2SAT 97
--- NOTE | 2024-09-12 19:32 | PC.NURSE ---
End of Shift: Patient pleasant and cooperative, A&O. VSS, afebrile. Dressing to abdomen C/D/I. Pt reports pain in her abdomen this shift, managed with PRN medication, see MAR. Patient has not passed gas this shift. Tolerating clear liquids. SBA
[2024-09-12] MEDS: MELATONIN 3 MG TABLET PO (20:57)
[2024-09-12] MEDS: SODIUM CHLORIDE 0.9 % (FLUSH) 10 ML SYRINGE 5 ML IVF (20:57)
[2024-09-12 23:00] VITALS: BP 148/97; PULSE 73; PULSE 85; RESP 16; TEMP 36.4; O2SAT 92
[2024-09-13] VITALS (8 sets, daily range): BP systolic 134–178; BP diastolic 72–102; PULSE 75–111; RESP 16–18; TEMP 36.3–36.7; O2SAT 90–97
[2024-09-13] MEDS: LACTATED RINGERS 1000 ML 1,000 ML 125 ML IV (01:29)
[2024-09-13] MEDS: OMEPRAZOLE 20 MG CAPSULE DR PO (06:35)
[2024-09-13 06:49] LABS: Basophils Absolute Auto 0.03 K/uL (0.00-0.30); Basophils Percent Auto 0.4 % (0.0-3.0); Eosinophils Absolute Auto 0.02 K/uL (0.00-0.50); Eosinophils Percent Auto 0.3 % (0.0-7.0); Hematocrit 29.5 % (33.0-51.0); Hemoglobin* 9.6 gm/dL (12.0-16.0); Immature Granulocytes Abs Auto 0.02 K/uL (0.00-0.30); Immature Granulocytes Pct Auto 0.3 %; Lymphocytes Percent Auto 16.3 % (20-44); Mean Corpuscular HGB Conc 33 gm/dL (32-36); Mean Corpuscular Hemoglobin 35 pg (26-34); Mean Corpuscular Volume 107 fL (80-100); Monocytes Percent Auto 6.4 % (0.0-11.0); Neutrophils Percent Auto 76.3 % (42.0-72.0); Platelet Count* 132 K/uL (140-440); RDW Coefficient of Variation % 13.9 % (11.5-15.5); Red Blood Count 2.75 m/uL (4.00-5.20); White Blood Count* 7.35 K/uL (4.50-11.00)
[2024-09-13 06:57] LABS: Slide Review Reflex No
[2024-09-13 06:59] LABS: Albumin* 3.6 g/dL (3.3-5.0); Chloride* 102 mmol/L (96-114); Potassium* 3.9 mmol/L (3.6-5.1); Sodium* 135 mmol/L (135-149)
[2024-09-13 07:01] LABS: Blood Urea Nitrogen* 12 mg/dL (7-30); Creatinine* 0.8 mg/dL (0.5-1.5); Est. Creatinine Clearance* 51.11; Estimated Glomerular Filt Rate 81 ml/min
[2024-09-13 07:02] LABS: Alanine Aminotransferase* 23 U/L (4-35); Alkaline Phosphatase* 36 U/L (40-150); Anion Gap 8 mEq/L (7-15); Aspartate Amino Transferase* 46 U/L (12-35); Bilirubin Total* 0.8 mg/dL (0.1-1.5); Calcium* 8.7 mg/dL (8.4-10.6); Carbon Dioxide* 25 mmol/L (20-32); Glucose* 82 mg/dL (60-115); Total Protein* 6.3 g/dL (6.0-8.3)
--- NOTE | 2024-09-13 07:20 | PC.NURSE ---
End of shift [id number]: Pt AxOx4, pleasant, and cooperative with cares. Reported pain that was managed with active ice, PRN medication, and walking the hallways. Midline incision CDI, Pt passed gas this morning. Fluids running @ 125 ml/hr. Pt able to sleep for majority of the night. Continent of the bladder. Indep walking the halls. Pt appears resting watching television with call light in reach.
[2024-09-13] MEDS: ACETAMINOPHEN 325 MG TABLET 650 MG PO ×3 (09:24→20:59)
[2024-09-13] MEDS: METOPROLOL SUCCINATE (XL) 25 MG TAB PO (09:24)
[2024-09-13] MEDS: LACTATED RINGERS 1000 ML 1,000 ML 75 ML IV (09:25)
[2024-09-13] MEDS: ESCITALOPRAM 10 MG TABLET 5 MG PO (09:25)
--- NOTE | 2024-09-13 10:41 | PM.GSPN ---
Subjective Subjective Date Seen: 09/13/24 Interval history: Lakisha is feeling well. She has been walking. She has passed a small amount of gas. No nausea with clear liquids. She is taking Tylenol for pain. She does feel like she is retaining fluid and that her legs are more swollen. Exam Narrative: Exam Narrative: General: No acute distress CV: Regular rate and rhythm respiratory: Clear to auscultation bilaterally abdomen: Incision without erythema. Small amount of blood crusting on the Steri-Strips. Bowel sounds heard on auscultation. Const: Vital Signs, click to edit/add: Vital Signs - 24 hr 09/12/24 11:00 09/12/24 15:00 09/12/24 15:00 Temperature 98.6 F 98.3 F Pulse Rate Pulse Rate [Pulse Oximeter] 82 79 Respiratory Rate 18 18 18 Blood Pressure [Le ft Arm] 125/80 148/91 H Pulse Oximetry 95 97 97 Oxygen Delivery Me thod Room Air Room Air Room Air 09/12/24 15:00 09/12/24 15:00 09/12/24 19:00 Temperature 97.6 F Pulse Rate 84 Pulse Rate [Pulse Oximeter] 79 84 Respiratory Rate 18 18 Blood Pressure [Le ft Arm] 166/100 H Pulse Oximetry 97 Oxygen Delivery Me thod Room Air 09/12/24 23:00 09/12/24 23:00 09/12/24 23:00 Temperature 97.5 F L Pulse Rate 73 Pulse Rate [Pulse Oximeter] 85 Respiratory Rate 16 16 Blood Pressure [Le ft Arm] 148/97 H Pulse Oximetry 92 92 Oxygen Delivery Co thod Room Air Room Air 09/13/24 03:00 09/13/24 09:17 09/13/24 09:17 Temperature 97.9 F Pulse Rate Pulse Rate [Pulse Oximeter] 80 96 Respiratory Rate 16 16 18 Blood Pressure [Le ft Arm] 144/86 H 157/98 H Pulse Oximetry 90 94 95 Oxygen Delivery Me thod Room Air Room Air Room Air Labs/Imaging Labs Labs: Electrolytes within normal limits white blood cell count is normal. Hemoglobin stable at 9.6. Progress Note:A&P Assessment and plan (1) Anemia: Status: Acute (2) S/P laparotomy: Status: Acute (3) Hypertension: Status: Chronic Plan The patient is a 69-year-old female who is now postop day 2 status post laparotomy and resection of small bowel for internal hernia with bowel ischemia. She is doing well overall. Awaiting full return of bowel function - full liquid diet today. Saline lock when taking adequate p.o. - Continue ambulation, SCDs and incentive spirometry. - Lovenox for DVT prophylaxis to start tonight.
--- NOTE | 2024-09-13 11:24 | P.IMPN_ITS ---
Assessment and Plan Assessment and plan (1) S/P laparotomy: Problem comment: 09/11/24 with partial small bowel resection by Dr. Casillas for ischemic small bowel - routine post op cares - Piperacillin/Tazobactam x3 doses, complete - hydrocodone, hydromorphone and ondansetron ordered prn - VTE prophylaxis with low dose enoxaparin and SCDs - 09/12 no active BS or flatus yet. NPO. Continue IVF. Good UO. - 09/13 good BS, +flatus, tolerating clears. D/w gen surgery. Decrease IVF. Status: Acute (2) Acute ischemia of small intestine: Problem comment: - 09/11 now s/p small-bowel resection Status: Acute (3) Hypertension: Problem comment: - continue metoprolol; patient takes at HS. Restart losartan 09/13. Status: Chronic (4) Anemia: Problem comment: - Stable at Hgb of 9.6. MCV is 107. Suspect partly hemodilutional. I will also check vit B12, folate and iron studies. Status: Acute (5) Thrombocytopenia: Problem comment: - stable @ 132. No need to adjust enoxaparin. Monitor. Status: Acute (6) Abnormal EKG: Problem comment: - abnormal EKG 09/11 prior to surgery when compared to EKG from last year, troponin was unremarkable, patient has not had any CP or SOB. Recheck EKG post op is reassuring. Monitoring on telemetry has been reassuring. Okay to d/c this. Status: Resolved (7) Hypokalemia: Status: Resolved (8) Lactic acidosis: Problem comment: - 09/11 due to ischemic bowel, lactate 4.2. Has gotten IVF and is s/p small bowel resection, recheck lactate, continue IVF maintenence at 125 cc/hr. Also will give LR 500cc bolus over 1 hr for decreased capillary refill and mottling on exam. Monitor UO. - Resolved 09/11. Status: Resolved Subjective Time Seen by Provider: 09:15 Date Seen: 09/13/24 Interval history: Lakisha c/o swollen feet today. She has been up walking independently in the halls and was able to do so 6 times yesterday and 3 times already today. She endorses good pain control. Denies CP or SOB. Exam Narrative: Exam Narrative: General: No acute distress. Awake alert oriented. No pallor or jaundice. Cardiovascular: Regular rate and rhythm. No murmurs, gallops, or rubs. Chest: No increased work of breathing. Clear to auscultation bilaterally. No crackles or wheezes. Abdomen: Bowel sounds present. Soft, nondistended, bandage is clean, dry, and intact. There is no erythema today. Extremities: Extremities are warm and well perfused. Mild edema bilaterally at ankles. Const: Vital Signs, click to edit/add: Vital Signs - 24 hr 09/12/24 15:00 09/12/24 15:00 09/12/24 15:00 Temperature 98.3 F Pulse Rate Pulse Rate [Pulse Oximeter] 79 79 Respiratory Rate 18 18 18 Blood Pressure [Le ft Arm] 148/91 H Pulse Oximetry 97 97 [facility] 09/12/24 15:00 09/12/24 19:00 09/12/24 23:00 Temperature 97.6 F 97.5 F L Pulse Rate 84 Pulse Rate [Pulse Oximeter] 84 85 Respiratory Rate 18 16 Blood Pressure [Le ft Arm] 166/100 H 148/97 H Pulse Oximetry 97 92 [facility] 09/12/24 23:00 09/12/24 23:00 09/13/24 03:00 Temperature 97.9 F Pulse Rate 73 Pulse Rate [Pulse Oximeter] 80 Respiratory Rate 16 16 Blood Pressure [Le ft Arm] 144/86 H Pulse Oximetry 92 90 [facility] Air 09/13/24 09:17 09/13/24 09:17 Temperature Pulse Rate Pulse Rate [Pulse Oximeter] 96 Respiratory Rate 16 18 Blood Pressure [Le ft Arm] 157/98 H Pulse Oximetry 94 95 [facility] Air Labs Labs: Laboratory Results - last 24 hr 09/13/24 06:28 WBC 7.35 RBC 2.75 L Hgb 9.6 L Hct 29.5 L MCV 107 H MCH 35 H MCHC 33 RDW Coeff of Calvin 13.9 Plt Count 132 L Neut % (Auto) 76.3 H Lymph % (Auto) 16.3 L [place] % (Auto) 6.4 Eos % (Auto) 0.3 Baso % (Auto) 0.4 Neut # (Auto) 5.60 Lymph # (Auto) 1.20 [place] # (Auto) 0.50 Eos # (Auto) 0.02 Baso # (Auto) 0.03 Abs Immat Gran (auto) 0.02 Imm/Tot Granulo (auto) 0.3 Sodium 135 Potassium 3.9 Chloride 102 Carbon Dioxide 25 Anion Gap 8 BUN 12 Creatinine 0.8 Estimated Creat Clear 51.11 Estimated GFR 81 Glucose 82 Calcium 8.7 Total Bilirubin 0.8 AST 46 H ALT 23 Alkaline Phosphatase 36 L Total Protein 6.3 Albumin 3.6
[2024-09-13] MEDS: LOSARTAN POTASSIUM 50 MG TABLET 75 MG PO (13:05)
[2024-09-13] MEDS: ENOXAPARIN 40 MG/0.4 ML INJ SUBCUT (20:58)
[2024-09-13] MEDS: MELATONIN 3 MG TABLET PO (20:59)
[2024-09-13] MEDS: SODIUM CHLORIDE 0.9 % (FLUSH) 10 ML SYRINGE 5 ML IVF (21:00)
[2024-09-14 03:45] VITALS: BP 177/104; PULSE 70; RESP 16; TEMP 36.6; O2SAT 95
[2024-09-14] MEDS: ACETAMINOPHEN 325 MG TABLET 650 MG PO (03:57)
--- NOTE | 2024-09-14 05:25 | PC.NURSE ---
Addendum entered by Melva Diallo RN 09/14/24 06:40: Pt reports 2 BMs, 1 small tootsie roll size and 1 medium/large since original note dictated by RN. Original Note: [id number] Pt slept well during the night, ambulating halls frequently in the evening and early this morning. Continues to pass gas, no more bowel movements since yesterday. Pain controlled with prn tylenol. No N/V, tolerating full liquid diet very well. Ice to abd, steri strips intact with old drainage, no new drainage noted.
[2024-09-14 07:03] LABS: Iron* 49 ug/dL (37-170)
[2024-09-14 07:12] LABS: Percent Iron Saturation 23 % (20-50); Total Iron Binding Capacity 211 ug/dL (265-497)
[2024-09-14 07:34] LABS: Vitamin B12* 559 pg/mL (243-894)
--- NOTE | 2024-09-14 07:40 | CRLHL7_ITS ---
For Patients: As a result of the Century Cures Act, medical imaging exams and procedure reports are released immediately into your electronic medical record. You may view this report before your referring provider. If you have questions, please contact your health care provider. INDICATION: Left lower extremity swelling TECHNIQUE: Ultrasound venous duplex lower left extremity. Compression venous exam was performed using huerta-scale, color Doppler, and spectral Doppler analysis. COMPARISON: None. FINDINGS: Sonographic imaging demonstrates the left common femoral, deep femoral, superficial femoral, popliteal, posterior tibial and greater saphenous and the contralateral right common femoral veins to be fully compressible with normal color Doppler blood flow. IMPRESSION: Normal left lower extremity venous ultrasound, no sign of deep venous thrombosis. Dictated by Juvenal Duran MD @ 09/14/2024 11:53:01 AM (Electronically Signed)
[2024-09-14 08:07] VITALS: BP 155/90; PULSE 55; RESP 16; TEMP 36.8; O2SAT 98
[2024-09-14] MEDS: FUROSEMIDE 10 MG/ML inj 20 MG IVP (08:08)
[2024-09-14] MEDS: SODIUM CHLORIDE 0.9 % (FLUSH) 10 ML SYRINGE 5 ML IVF (08:08)
[2024-09-14] MEDS: LOSARTAN POTASSIUM 50 MG TABLET 75 MG PO (09:13)
[2024-09-14] MEDS: OMEPRAZOLE 20 MG CAPSULE DR PO (09:14)
[2024-09-14] MEDS: METOPROLOL SUCCINATE (XL) 25 MG TAB PO (09:14)
[2024-09-14] MEDS: ESCITALOPRAM 10 MG TABLET 5 MG PO (09:14)
--- NOTE | 2024-09-14 09:36 | P.DS_ITS ---
DS: Providers Provider Date Seen: 09/14/24 Date of admission: 09/11/24 12:03 Primary care physician: Tess Murphy DO Admitting Clinician: Amber Osman MD Consults: 09/11/24 07:34 Consult to Physician [CONS] Urgent Comment: Consulting Provider: Juanis Casillas Has provider been notified: Yes 09/11/24 12:05 Consult to Physician [CONS] Routine Comment: Consulting Provider: Hospitalists Has provider been notified: Yes Attending Physician on discharge: Amber Osman MD DS: Diagnosis Discharge Diagnosis (1) Lower extremity edema: Status: Acute Problem details: - Obtain LLE US before discharge today. Also one dose of lasix, as below. (2) Thrombocytopenia: Status: Acute Problem details: - stable @ 132. No need to adjust enoxaparin. Recheck as outpatient with PCP. (3) Anemia: Status: Acute Problem details: - Stable at Hgb of 9.6. MCV is 107. Suspect partly hemodilutional. - B12 level okay. iron level okay, TIBC slightly low, folate pending. Will have patient f/u with PCP. (4) Abnormal EKG: Status: Resolved Problem details: - abnormal EKG 09/11 prior to surgery when compared to EKG from last year, troponin was unremarkable, patient has not had any CP or SOB. Recheck EKG post op is reassuring. Monitoring on telemetry has been reassuring. Okay to d/c this. (5) S/P laparotomy: Status: Acute Problem details: 09/11/24 with partial small bowel resection by Dr. Casillas for ischemic small bowel - routine post op cares - Piperacillin/Tazobactam x3 doses, complete - hydrocodone, hydromorphone and ondansetron ordered prn - VTE prophylaxis with low dose enoxaparin and SCDs - 09/12 no active BS or flatus yet. NPO. Continue IVF. Good UO. - 09/13 good BS, +flatus, tolerating clears. D/w gen surgery. Decrease IVF. - 09/14 gee full liq diet, +BMs, discharging home today. (6) Hypertension: Status: Chronic Problem details: - continue metoprolol; patient takes at HS. Restarted losartan 09/13. - 09/13 more hypertensive today (was off losartan for a few days). Will give one dose IV lasix this morning for edema and HTN. Continue usual home meds upon discharge. DS: Summary Hospital Course Hospital Course: The patient is a 69-year-old female who presented to the emergency department on 09/11/2024 with severe abdominal pain. She was found to have bowel ischemia on CT scan and lactic acidosis. She was taken emergently to the operating room and she was found to have a long segment of frankly ischemic small bowel which was incarcerated in an internal hernia. This was resected. She was then admitted to the hospital postoperatively. She did well, having resolution of her acidosis, and had return of bowel function on postoperative day 3. She was noted to have some asymmetric lower extremity swelling in the left leg. DVT ultrasound was negative. She was also noted to have anemia and thrombocytopenia postop, however this was stable and likely a combination of dilution and acute blood loss from surgery. She was deemed safe for discharge home on postop day 3. Time Spent with Patient Time attestation: Total time spent providing and/or coordinating discharge services: Exam Narrative: Exam Narrative: General appearance: Alert, cooperative, and in no distress Pulmonary: Clear to auscultation bilaterally Cardiovascular Heart: Regular rate and rhythm Extremities: warm and well perfused. Left leg is very slightly larger than the right. Gastrointestinal Abdominal: Incision without erythema. Small amount of crusting blood noted on the Steri-Strips. There is ecchymosis below the incision on the abdominal wall. Musculoskeletal: Extremities: Upper: Both upper extremities have normal joint range of motion and intact strength. Lower: Both lower extremities have normal joint range of motion and intact strength. Skin: Normal skin color, texture, and turgor. Neurologic: No focal deficits Psychiatric: Alert, oriented, cooperative, normal affect. Const: Vital Signs, click to edit/add: Vital Signs - 24 hr 09/13/24 12:22 09/13/24 13:01 09/13/24 15:00 Temperature 98.1 F Pulse Rate [Pulse Oximeter] 92 Respiratory Rate 18 18 Blood Pressure [Le ft Arm] 171/102 H 178/72 H 134/82 Pulse Oximetry 97 95 Oxygen Delivery Me thod Room Air Room Air 09/13/24 15:00 09/13/24 19:00 09/13/24 22:47 Temperature 97.8 F Pulse Rate [Pulse Oximeter] 75 Respiratory Rate 18 18 Blood Pressure [Le ft Arm] 174/102 H Pulse Oximetry 94 94 94 Oxygen Delivery Me thod Room Air Room Air Room Air 09/13/24 22:47 09/14/24 03:45 09/14/24 08:07 Temperature 97.3 F L 97.8 F Pulse Rate [Pulse Oximeter] 76 70 Respiratory Rate 18 16 16 Blood Pressure [Le ft Arm] 167/98 H 177/104 H Pulse Oximetry 94 95 98 Oxygen Delivery Me thod Room Air Room Air Room Air 09/14/24 08:07 Temperature 98.2 F Pulse Rate [Pulse Oximeter] 55 L Respiratory Rate 16 Blood Pressure [Le ft Arm] 155/90 H Pulse Oximetry 98 Oxygen Delivery Me thod Room Air DS: Data Data Completed and Pending Labs on day of discharge: Labs from last 24 hours 09/14/24 06:10 Iron 49 TIBC 211 L % Saturation 23 Vitamin B12 559 RBC Fol Stevan for Serum Pending Discharge Plan Discharge Disposition: Home, Self-Care Date of Admission: 09/11/24 12:03 Attending Provider on Discharge: Juanis Casillas Consulting Providers: Juanis Casillas; Ruth Cervantes; Amber Osman; Evaristo Lopes Primary Care Provider: Tess Murphy Condition: Improved Anticipated Discharge Date/Time: 09/14/24 16:34 Discharge Medications: New hydrocodone-acetaminophen 5-325 mg tablet 1 - 2 tab PO Q6H PRN (Reason: Pain) Qty: 25 0RF Rx Instructions: 1 - 2 tab orally as needed Continued losartan 50 mg tablet 75 mg PO DAILY metoprolol succinate 25 mg tablet extended release 24 hr 25 mg PO DAILY escitalopram oxalate 5 mg tablet 5 mg PO QAM melatonin 3 mg tablet 3 mg PO HS omeprazole 20 mg capsule,delayed release(DR/EC) 20 mg PO DAILY Discharge Orders: Discharge Order (Routine); Ordered 09/14/24 Ordered By: Juanis Casillas Patient Education: Hydrocodone/Acetaminophen (By mouth), Bowel Resection (DC) Additional Instructions: Wound care: Your sutures are under the skin and will dissolve over time. Leave steri strips (white bandages) over incisions until they fall off (or remove after 7 days). OK to shower tomorrow but avoid bathing, soaking or swimming for 2 weeks. Pat the incisions dry. No need to wash or scrub the area. Apply ice to the area as needed for swelling. It is also OK to use a heating pad if this provides more comfort to you. Pain control: You were prescribed a pain medication. This medication contains acetaminophen (Tylenol). If you are taking your prescribed pain pills 4 times daily, do not take additional acetaminophen. As your pain improves, you can try taking acetaminophen instead of the prescribed pain pill. It is ok to take Ibuprofen or Naproxen (per directions on packaging). This medication helps with inflammation and swelling. Take an [id number] stool softener while you are taking prescribed pain medications to help alleviate constipation. I recommend Senna and/or Colace. Take as directed on package. If you have not had a bowel movement in 3 days, try taking Miralax as directed on the package. All of these are available over the counter. Follow-up Follow up with Dr. Casillas in 2-3 weeks Please call if you are experiencing severe pain, nausea, vomiting, difficulty urinating, fever or have not had bowel movement in 4 days after surgery. Activity Level: Activity as Tolerated and No strenuous activity Activity Detail: No lifting more than 20 pounds for 4 weeks Discharge Diet: Regular Follow Up Appointments: Juanis Casillas MD [Staff Physician] - 09/28/24 2:00 pm ([facility] for follow-up.) Tess Murphy DO [Primary Care Provider] - 09/21/24 1:30 pm ([facility] for follow-up and CBC.) Forms: [employer] Info Instructions
--- NOTE | 2024-09-14 09:54 | PM.IMPN1 ---
Assessment and Plan Assessment and plan (1) Lower extremity edema: Problem comment: - Obtain LLE US before discharge today. Also one dose of lasix, as below. Status: Acute (2) S/P laparotomy: Problem comment: 09/11/24 with partial small bowel resection by Dr. Casillas for ischemic small bowel - routine post op cares - Piperacillin/Tazobactam x3 doses, complete - hydrocodone, hydromorphone and ondansetron ordered prn - VTE prophylaxis with low dose enoxaparin and SCDs - 09/12 no active BS or flatus yet. NPO. Continue IVF. Good UO. - 09/13 good BS, +flatus, tolerating clears. D/w gen surgery. Decrease IVF. - 09/14 gee full liq diet, +BMs, discharging home today. Status: Acute (3) Acute ischemia of small intestine: Problem comment: - 09/11 now s/p small-bowel resection Status: Acute (4) Hypertension: Problem comment: - continue metoprolol; patient takes at HS. Restarted losartan 09/13. - 09/13 more hypertensive today (was off losartan for a few days). Will give one dose IV lasix this morning for edema and HTN. Continue usual home meds upon discharge. Status: Chronic (5) Anemia: Problem comment: - Stable at Hgb of 9.6. MCV is 107. Suspect partly hemodilutional. - B12 level okay. iron level okay, TIBC slightly low, folate pending. Will have patient f/u with PCP. Status: Acute (6) Thrombocytopenia: Problem comment: - stable @ 132. No need to adjust enoxaparin. Recheck as outpatient with PCP. Status: Acute (7) Abnormal EKG: Problem comment: - abnormal EKG 09/11 prior to surgery when compared to EKG from last year, troponin was unremarkable, patient has not had any CP or SOB. Recheck EKG post op is reassuring. Monitoring on telemetry has been reassuring. Okay to d/c this. Status: Resolved (8) Hypokalemia: Status: Resolved (9) Lactic acidosis: Problem comment: - 09/11 due to ischemic bowel, lactate 4.2. Has gotten IVF and is s/p small bowel resection, recheck lactate, continue IVF maintenence at 125 cc/hr. Also will give LR 500cc bolus over 1 hr for decreased capillary refill and mottling on exam. Monitor UO. - Resolved 09/11. Status: Resolved Subjective Time Seen by Provider: 07:35 Date Seen: 09/14/24 Interval history: Lakisha feels well. She denies CP or SOB. +Flatus, +3 BMs since yesterday, tolerating full liquid diet. C/o persistent LE edema, L more than R, denies leg pain. Exam Narrative: Exam Narrative: General: No acute distress. Awake alert oriented. No pallor or jaundice. Cardiovascular: Regular rate and rhythm. No murmurs, gallops, or rubs. Chest: No increased work of breathing. Clear to auscultation bilaterally. No crackles or wheezes. Abdomen: Bowel sounds present. Steristrips have a scant amount of dried blood, no erythema on skin. Mild ecchymosis inferior to surgical wound. Extremities: Extremities are warm and well perfused. Mild edema bilaterally at ankles, left more than right. No calf tenderness. Const: Vital Signs, click to edit/add: Vital Signs - 24 hr 09/13/24 12:22 09/13/24 13:01 09/13/24 15:00 Temperature 98.1 F Pulse Rate [Pulse Oximeter] 92 Respiratory Rate 18 18 Blood Pressure [Le ft Arm] 171/102 H 178/72 H 134/82 Pulse Oximetry 97 95 Oxygen Delivery Me thod Room Air Room Air 09/13/24 15:00 09/13/24 19:00 09/13/24 22:47 Temperature 97.8 F Pulse Rate [Pulse Oximeter] 75 Respiratory Rate 18 18 Blood Pressure [Le ft Arm] 174/102 H Pulse Oximetry 94 94 94 Oxygen Delivery Mo thod Room Air Room Air Room Air 09/13/24 22:47 09/14/24 03:45 09/14/24 08:07 Temperature 97.3 F L 97.8 F Pulse Rate [Pulse Oximeter] 76 70 Respiratory Rate 18 16 16 Blood Pressure [Le ft Arm] 167/98 H 177/104 H Pulse Oximetry 94 95 98 Oxygen Delivery Mo thod Room Air Room Air Room Air 09/14/24 08:07 Temperature 98.2 F Pulse Rate [Pulse Oximeter] 55 L Respiratory Rate 16 Blood Pressure [Le ft Arm] 155/90 H Pulse Oximetry 98 Oxygen Delivery Me thod Room Air Labs Labs: Laboratory Results - last 24 hr 09/14/24 06:10 Iron 49 TIBC 211 L % Saturation 23 Vitamin B12 559
[2024-09-14] MEDS: HYDROCODONE-ACETAMIN 5-325 MG 1 TAB PO (10:14)
[2024-09-15 23:18] LABS: Folate, Serum 10.2 ng/mL (>=5.9)
== END 2024-09-14 13:13 | disposition home or self-care (01) | DRG 330 ==
LOC: ED 08:25 → SS 09:16 → MEDSURG 09-13 08:50 → SS 09-20 10:51 → MEDSURG 09-20 10:51
PROVIDERS: Surgery; Admitting Provider Family Medicine; Emergency Provider Family Medicine; PCP Family Medicine; Visit Provider Family Medicine
PROC: 0DT80ZZ Resection of Small Intestine, Open Approach (ICD-10-PCS; principal; 2024-09-11 09:00)
DX: K55.019 Acute (reversible) ischemia of small intestine, extent unspecified (principal); D62 Acute posthemorrhagic anemia; E87.21 Acute metabolic acidosis; K56.50 Intestinal adhesions [bands], unspecified as to partial versus complete obstruction; R18.8 Other ascites; R60.0 Localized edema; D69.59 Other secondary thrombocytopenia; G89.18 Other acute postprocedural pain; E87.6 Hypokalemia; I35.1 Nonrheumatic aortic (valve) insufficiency; R94.31 Abnormal electrocardiogram [ECG] [EKG]; I10 Essential (primary) hypertension
CPT/HCPCS: 00840; 36415; 64488; 74177; 76942; 80048; 80053; 80076; 81003; 82565; 82607; 82746; 83540; 83550; 83605; 83690; 84484; 85025; 86140; 88307; 93005; 93971; 99140; 99284; 99285; A9270; J0330; J0665; J0666; J1100; J1171; J1650; J1938; J2371; J2405; J2470; J2543; J2704; J2710; J3475; J3480; J3490; J7050; J7120; Q9967